=== PATIENT | male | born 1930 | race Caucasian/White ===

== ENCOUNTER 2016-12-21 23:52 | Emergency (ER) | payer MEDICARE ==
[~2016-12-21] VITALS: Ht 170.2 cm; Wt 64.1 kg
[~2016-12-21 23:52] MED LIST: ASCO500C PO; ASPI-110 PO; CITRTAB7 PO; FERR325T PO; FLUT1SPR5 EACH NARE; LISI-515 PO; MULT-6 PO; OMEG100037; TAMS5CAP PO; VITA10002 PO
[2016-12-22 00:01] VITALS: BP 190/70; PULSE 63; RESP 16; TEMP 98.3; O2SAT 98
[2016-12-22 00:29] VITALS: BP 133/92; PULSE 94; RESP 16; TEMP 98.2; O2SAT 100
[2016-12-22 00:40] VITALS: O2SAT 96
[2016-12-22] MEDS ORDERED: SODIUM CHLORIDE 0.9% FLUSH 10 ML FLUSH IVF PRN (00:45)
[2016-12-22] MEDS ORDERED: MORPHINE SULFATE 4 MG/ML INJ IV PUSH ONE ×2 (00:45→01:00)
[2016-12-22 01:07] LABS: AUTOMATED NEUTROPHIL # 2.8 TH/MM3 (1.8-7.7); BASOPHIL % 0.7 % (0.0-2.0); EOSINOPHIL # 0.2 TH/MM3 (0-0.4); EOSINOPHIL % 3.7 % (0.0-4.0); HEMO FLAGS DIFF FINAL; LYMPH % 32.2 % (9.0-44.0); LYMPHOCYTE # 1.8 TH/MM3 (1.0-4.8); MEAN CELL VOLUME 95.3 FL (80.0-100.0); MEAN CORPUSCULAR HEMOGLOBIN 32.1 PG (27.0-34.0); MEAN CORPUSCULAR HGB CONC 33.7 % (32.0-36.0); MONO % 12.7 % (0.0-8.0); NEUT % 50.7 % (16.0-70.0); PLATELET COUNT 145 TH/MM3 (150-450); RED BLOOD COUNT 3.36 MIL/MM3 (4.50-5.90); WHITE BLOOD COUNT 5.5 TH/MM3 (4.0-11.0)
[2016-12-22 01:08] VITALS: BP 186/56; PULSE 58; O2SAT 96
[2016-12-22 01:14] LABS: CHLORIDE 102 MEQ/L (98-107); POTASSIUM 4.5 MEQ/L (3.5-5.1); SODIUM (NA) 136 MEQ/L (136-145)
[2016-12-22 01:18] LABS: ANION GAP 7 MEQ/L (5-15); BICARBONATE 26.6 MEQ/L (21.0-32.0); BLOOD UREA NITROGEN 29 MG/DL (7-18)
[2016-12-22 01:20] LABS: ALT (GPT) 16 U/L (12-78); APTT (PATIENT) 26.4 SEC (24.3-30.1); PROTHROMBIN TIME - PATIENT 10.7 SEC (9.8-11.6)
[2016-12-22 01:21] LABS: AST (GOT) 15 U/L (15-37); GLOMERULAR FILTRATION RATE 44 ML/MIN (>89)
[2016-12-22 01:22] LABS: TOTAL BILIRUBIN ADULT 0.5 MG/DL (0.2-1.0)
[2016-12-22 01:23] LABS: ALKALINE PHOSPHATASE 68 U/L (45-117); CREATINE KINASE 129 U/L (39-308)
[2016-12-22 01:36] LABS: CKMB 3.1 NG/ML (0.5-3.6)
[2016-12-22] MEDS ORDERED: MORPHINE SULFATE 8 MG/ML INJ IV PUSH ONE (02:15)
[2016-12-22 02:29] VITALS: BP 197/70; PULSE 68; O2SAT 96
[2016-12-22 03:30] VITALS: BP 175/63; PULSE 56; O2SAT 96
[2016-12-22] MEDS ORDERED: IOHEXOL 350 MG/ML 10 ML VIAL (for RAD DIAG) IV ONE (03:44)
--- NOTE | 2016-12-22 04:12 | RADHPO ---
EXAM DATE/TIME: 12/22/2016 02:49 [facility] COMPARISON: No previous studies available for comparison. INDICATIONS : Left lower back pain. Evaluate for aortic dissection. IV CONTRAST: 100 cc Omnipaque 350 (iohexol) IV RADIATION DOSE: 8.80 CTDIvol (mGy) ; Combined studies MEDICAL HISTORY : Cardiovascular disease. Aneurysm, abdominal. SURGICAL HISTORY : Abdominal aortic aneurysm repair. ENCOUNTER: Initial ACUITY: 1 day PAIN SCALE: 10/10 LOCATION: Left Lower back. TECHNIQUE: Volumetric scanning was performed using a multi-row detector CT scanner. The data was post processed with a variety of visualization algorithms including full volume maximum intensity projection, multi -planar sliding thin slab reformation, curved planar reformation, and surface rendering techniques. Using automated exposure control and adjustment of the mA and/or kV according to patient size, radiat ion dose was kept as low as reasonably achievable to obtain optimal diagnostic quality images. FINDINGS: Thoracic/abdominal aorta: Diffuse calcified atherosclerotic plaque. No aneurysmal change. No dissection. The bifurcated stent g raft is seen within the infrarenal aorta. The stent graft is patent. No endoleak. 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 In flow and arch vessels are patent. Both renal arteries are stenotic at their origins. Heart and mediastinum: The heart is normal in size. No pericardial effusion. Coronary artery atherosclerotic calcifications are noted. Pulmonary arteries are normal in caliber. No mass or adenopathy. Lung parenchyma: A calcified pleural plaque is seen involving the right apex. Emphysematous changes. No infiltrate or effusion. Other structures: A small hiatal hernia. Bilateral cortical renal cysts. Scattered colonic diverticuli. CONCLUSION: 1. No acute abnormality. In particular, no dissection. 2. Bilateral renal artery stenoses. 3. Coronary artery atherosclerotic calcifications. 4. Emphysematous changes. Gualberto Rivas Jr., MD on December 22, 2016 at 4:05 Board Certified Radiologist. This report was verified electronically.
--- NOTE | 2016-12-22 04:18 | RADHPO ---
EXAM DATE/TIME: 12/22/2016 02:49 [facility] COMPARISON: No previous studies available for comparison. INDICATIONS : Left lower back pain. Evaluate for fracture. RADIATION DOSE: ; Reconstructed from previous dataset MEDICAL HISTORY : Aneurysm, abdominal. Cardiovascular disease SURGICAL HISTORY : Abdominal aortic aneurysm repair. ENCOUNTER: Initial ACUITY: 1 day PAIN SCALE: 10/10 LOCATION: Left Lower back.. TECHNIQUE: Volumetric scanning of the lumbar spine was performed. Multiplanar reconstructions in the sagittal, coronal and oblique axial planes were performed. Using automated exposure control and adjustment of the mA and/or kV according to patient size, radiation dose was kept as low as reasonably achievable t o obtain optimal diagnostic quality images. FINDINGS: VERTEBRAE: Normal vertebral body height. Diffuse osteopenia. ALIGNMENT: No evidence of subluxation. T12-L1: The thecal sac has a normal diameter. No evidence of disc bulge or protrusion. The neural foramina are patent bilaterally. L1-L2: The thecal sac has a normal diameter. No evidence of disc bulge or protrusion. The neural foramina are patent bilaterally. L2-L3: A prominent anterior osteophyte. A mild broad-based disc bulge. Mild ligamentum flavum hypertrophy of the facets. Central canal and neural foramina are patent. L3-L4: A broad-based disc bulge in combination with moderate ligamentum flavum hypertrophy and mild bony hyp ertrophy of the facets causes narrowing of the central canal and lateral recesses bilaterally. There is narrowing of the neural foramina more pronounced on the right. No overt impingement. L4-L5: There is disc space narrowing with vacuum disc phenomenon. A mild broad-based disc bulge. Prominent l igamentum flavum hypertrophy which is more abundant on the left with moderate bony hypertrophy. There is total effacement left lateral recess. Narrowing of the right lateral recess and central canal. Im pingement of the left L4 nerve root within the neural foramen. Narrowing of the right neural foramen without overt impingement. L5-S1: Disc space narrowing with vacuum disc phenomena and broad-based bulge. Narrowing of the lateral reces ses bilaterally. Narrowing of the neural foramina without overt impingement. Mild ligamentum flavum h ypertrophy and bony hypertrophy of the facets. CONCLUSION: 1. No acute abnormality. 2. Degenerative changes including central canal stenosis and neural impingement as detailed above. Gualberto Rivas Jr., MD on December 22, 2016 at 4:11 Board Certified Radiologist. This report was verified electronically.
[2016-12-22] MEDS ORDERED: CYCL1TAB29 PO (04:29)
--- NOTE | 2016-12-22 04:30 | PD ---
HPI Chief Complaint: Back/ Neck Pain or Injury Time Seen by Provider: 00:27 Travel History International Travel<30 days: No Contact w/Intl Traveler<30days: No Traveled to known affect area: No History of Present Illness HPI Patient is 86-year-old male presents emergency Department with complaints of left-sided low back pain for the past day. Patient states that yesterday he did exert himself more than normal and was doing some yard work outside. He describes the pain is throbbing. In triage the patient was also noted to have an irregular pulse and EKG was performed. He states the pain is fairly severe in his low back but did not endorse a sudden onset. Patient has not followed with a associate material handler is never had a heart attack or stroke before. He was told he had a history of an irregular heartbeat. He cannot clarify further. No fevers dysuria.Patient has no complaints of shortness of breath chest pain saddle anesthesia difficulty urinating or difficulty ambulating.Patient denies any dysuria denies any abdominal pain nausea or vomiting. PFSH Past Medical History Cancer: No Cardiovascular Problems: Yes High Cholesterol: No Coronary Artery Disease: Yes Endocrine: No Genitourinary: Yes (BPH) Hypertension: Yes Immune Disorder: No Implanted Vascular Access Dvce: Yes Musculoskeletal: No Neurologic: No Psychiatric: No Reproductive: No Respiratory: No Past Surgical History Abdominal Aneurysm Repair: Yes ( 12/2004) Abdominal Surgery: Yes (2004 ENDOVASCULAR AAA) Body Medical Devices: AORTIC STENT Cardiac Surgery: Yes (ANGIOPLASTY 1988) Other Surgery: Yes Social History Alcohol Use: No Tobacco Use: Yes (1 p per week) Substance Use: No Allergies-Medications (Allergen,Severity, Reaction): Coded Allergies: No Known Allergies (Verified , 12/22/16) Reported Meds & Prescriptions Reported Meds & Active Scripts Active Flexeril (Cyclobenzaprine HCl) 10 Mg Tab 10 Mg PO TID Reported Vitamin B-12 (Cyanocobalamin) 1,000 Mcg Tab 1,000 Mcg PO DAILY Vitamin C (Ascorbic Acid) 500 Mg Cap 500 Mg PO DAILY Flomax (Tamsulosin HCl) 0.4 Mg Cap 0.4 Mg PO HS Fish Oil 1000 mg ([place]-3 Fatty Acids) 1 Cap Cap BID Centrum (Multiple Vitamins W/ Minerals) 1 Tab 1 Tab PO DAILY Aspirin 81 (Aspirin) 81 Mg Tabdr 81 Mg PO DAILY Citracal + D3 Maximum (Calcium Citrate-Vitamin D) 315-250 Mg-Unit Tab 1 Tab PO BID Lisinopril 20 Mg Tab 20 Mg PO DAILY Review of Systems Except as stated in HPI: all other systems reviewed are Neg Physical Exam Narrative GENERAL: Well-developed well-nourished, appears generally than stated age, minimally uncomfortable. SKIN: Focused skin assessment warm/dry. HEAD: Atraumatic. Normocephalic. EYES: Pupils equal and round. No scleral icterus. No injection or drainage. ENT: No nasal bleeding or discharge. Mucous membranes pink and moist. NECK: Trachea midline. No JVD. CARDIOVASCULAR: Irregularly irregular. 2+ bilateral equal pulses in all 4 extremities. No murmur appreciated. RESPIRATORY: No accessory muscle use. Clear to auscultation. Breath sounds equal bilaterally. GASTROINTESTINAL: Abdomen soft, non-tender, nondistended. Hepatic and splenic margins not palpable. MUSCULOSKELETAL: No obvious deformities. No clubbing. No cyanosis. No edema. Patient isolates the pain to the low back at approximately the L2-L3 area states it wraps around the left side ending in the midaxillary line. There is some pain on the right as well but states more intense on the left. There is no tenderness to light palpation. No rash. No reproducible midline tenderness no reproducible bony tenderness. NEUROLOGICAL: Awake and alert. No obvious cranial nerve deficits. Motor grossly within normal limits. Normal speech. PSYCHIATRIC: Appropriate mood and affect; insight and judgment normal. Data Data Last Documented VS Vital Signs Date Time Temp Pulse Resp B/P Pulse Ox O2 Delivery O2 Flow Rate FiO2 12/22/16 03:30 56 175/63 96 Room Air 12/22/16 00:01 98.3 16 Orders Electrocardiogram (12/22/16 00:43) Ckmb (Isoenzyme) Profile (12/22/16 00:43) Complete Blood Count With Diff (12/22/16 00:43) Comprehensive Metabolic Panel (12/22/16 00:43) Magnesium (Mg) (12/22/16 00:43) Prothrombin Time / Inr (Pt) (12/22/16 00:43) Act Partial Throm Time (Ptt) (12/22/16 00:43) Troponin I (12/22/16 00:43) Ecg Monitoring (12/22/16 00:43) Bilateral Bp Monitoring (12/22/16 00:43) Iv Access Insert/Monitor (12/22/16 00:43) Oximetry (12/22/16 00:43) Oxygen Administration (12/22/16 00:43) Sodium Chloride 0.9% Flush (Ns Flush) (12/22/16 00:45) Morphine Inj (Morphine Inj) (12/22/16 00:45) Morphine Inj (Morphine Inj) (12/22/16 01:00) CKMB (12/22/16 00:55) CKMB% (12/22/16 00:55) Cta Thor Abd Aorta W Iv C W3d (12/22/16 ) Ct Lumb Spine W/O Contrast (12/22/16 ) Morphine Inj (Morphine Inj) (12/22/16 02:15) Iohexol 350 Inj (Omnipaque 350 Inj) (12/22/16 03:44) Labs Laboratory Tests Test 12/22/16 00:55 White Blood Count 5.5 TH/MM3 Red Blood Count 3.36 MIL/MM3 Hemoglobin 10.8 GM/DL Hematocrit 32.0 % Mean Corpuscular Volume 95.3 FL Mean Corpuscular Hemoglobin 32.1 PG Mean Corpuscular Hemoglobin 33.7 % Concent Red Cell Distribution Width 13.0 % Platelet Count 145 TH/MM3 Mean Platelet Volume 8.6 FL Neutrophils (%) (Auto) 50.7 % Lymphocytes (%) (Auto) 32.2 % Monocytes (%) (Auto) 12.7 % Eosinophils (%) (Auto) 3.7 % Basophils (%) (Auto) 0.7 % Neutrophils # (Auto) 2.8 TH/MM3 Lymphocytes # (Auto) 1.8 TH/MM3 Monocytes # (Auto) 0.7 TH/MM3 Eosinophils # (Auto) 0.2 TH/MM3 Basophils # (Auto) 0.0 TH/MM3 CBC Comment DIFF FINAL Differential Comment Prothrombin Time 10.7 SEC Prothromb Time International 1.0 RATIO Ratio Activated Partial 26.4 SEC Thromboplast Time Sodium Level 136 MEQ/L Potassium Level 4.5 MEQ/L Chloride Level 102 MEQ/L Carbon Dioxide Level 26.6 MEQ/L Anion Gap 7 MEQ/L Blood Urea Nitrogen 29 MG/DL Creatinine 1.50 MG/DL Estimat Glomerular Filtration 44 ML/MIN Rate Random Glucose 101 MG/DL Calcium Level 8.5 MG/DL Magnesium Level 2.0 MG/DL Total Bilirubin 0.5 MG/DL Aspartate Amino Transf 15 U/L (AST/SGOT) Alanine Aminotransferase 16 U/L (ALT/SGPT) Alkaline Phosphatase 68 U/L Total Creatine Kinase 129 U/L Creatine Kinase MB 3.1 NG/ML Troponin I 0.03 NG/ML Total Protein 6.8 GM/DL Albumin 3.6 GM/DL MDM Medical Decision Making Medical Screen Exam Complete: Yes Emergency Medical Condition: Yes Interpretation(s) EKG shows second degree heart block with PVCs appears to be almost a bigeminal pattern ([id number] etc.), VT interval is 214 when there is couple between P and QRS. Intervals are otherwise within normal limits. No concerning ST T changes. This certainly is an abnormal rhythm EKG. Comparison to 04/03/2015. A bigeminal type pattern is still present however the dropped QRS complexes after P waves consistent with secondary heart block is new. No EKG can be found in the patient's record indicative of previous secondary heart block. Differential Diagnosis Second degree heart block, aortic dissection, acute abdominal pain, pathologic fracture, muscle strain, muscle sprain. Narrative Course Patient was roomed in the emergency department, given his age and his low weight his pain was initially treated with 2 mg of morphine which did not cause significant relief. He was given an additional 5 mg of IV morphine which completely relieved his pain and he stated he felt much better. Given that his pain was not reproducible and his age as well as abnormal EKG a think a CT aorta is indicated to rule out significant pathology. Last [address] Imp[address] 12/22/16 Signed Impressions: Service Date/Time: Thursday, December 22, 2016 02:49 - CONCLUSION: 1. No acute abnormality. 2. Degenerative changes including central canal stenosis and neural impingement as detailed above. Gualberto Rivas Jr., MD Aorta CTA 12/22/16 Signed Impressions: Service Date/Time: Thursday, December 22, 2016 02:49 - CONCLUSION: 1. No acute abnormality. In particular, no dissection. 2. Bilateral renal artery stenoses. 3. Coronary artery atherosclerotic calcifications. 4. Emphysematous changes. Gualberto Rivas Jr., MD Initial laboratory workup including CBC CMP troponin all within normal limits. The patient has been monitored on cardiac telemetry who continues to have this second-degree heart block which is not further classified type I or type II is appears to be a dropped beat every other P wave. I discussed all the results with the patient and my chief impression the patient is that he has strained a muscle in his left lower back secondary to overuse yesterday. This was his presenting complaint. We are also faced with explaining his abnormal EKG which does appear to be second-degree heart block with frequent PVCs. Concerns would be for deterioration and third-degree heart block ACS or AMI. All of my concerns were conveyed to the patient. Discussed with him and his that if this rhythm goes unchecked the patient is at risk for sudden cardiac collapse and permanent disability. He verbalized understanding to this risk. After discussion the patient has not had any history of shortness of breath or chest pain or any complaints from umbilicus superiorly. He states he would like to go home at this juncture. I discussed with him that if he goes home there is certain wrist that is arrhythmia will further decompensate and he is at risk of and disability. He verbalized understanding acceptance this risk and still like to go home. He will be prescribed Flexeril for pain control and discussed need for short order follow-up with his primary care physician he is also been given a referral to cardiology and recommended he call first thing in the morning to make an appointment. He verbalized understanding and will follow-up. He did sign a formal AMA form. He was encouraged to return to the emergency department should he change his mind about inpatient cardiology consult. Discussed signs symptoms that should prompt him to call 911. Diagnosis Primary Impression: Second degree heart block Additional Impression: Low back pain Referrals: Estrada Elliott MD Additional Instructions: Recommend following with her primary care physician as soon as possible and a associate material handler as soon as possible. If you change your mind for admission to the hospital and cardiology consultation your welcome to return at any time. Med/Other Pt SpecificInfo: Prescription(s) given Scripts Cyclobenzaprine (Flexeril)10 Mg Tab10 Mg PO TID #15 TAB Ref 0 Prov:Saulo Dawson MD 12/22/16 Disposition: 07 AGAINST MEDICAL ADVICE Condition: Stable Saulo Dawson MD Dec 22, 2016 04:30
--- NOTE | 2016-12-22 09:12 | EKG ---
Date Performed: 12/22/2016 Time Performed: 00:18:52 PTAGE: 86 years EKG: Sinus bradycardia with multifocal interpolated PVCs with borderline 1st degree A-V block. S econd degree AV block 2:1 ST junctional depression is nonspecific Abnormal ECG PREVIOUS TRACING : 06/21/2011 11.27 DOCTOR: Glenn Veras Interpretating Date/Time 12/22/2016 09:11:21
[2017-01-18] MEDS ORDERED: LISI-515 PO (15:06)
[2017-03-08] MEDS ORDERED: FURO20TA PO (14:50)
== END 2016-12-22 04:47 | disposition left against medical advice (07) ==
LOC: PHED 23:52
DX: I44.1 Atrioventricular block, second degree (principal); M48.06 Spinal stenosis, lumbar region; M54.5 Low back pain; I49.3 Ventricular premature depolarization; I10 Essential (primary) hypertension; I25.10 Atherosclerotic heart disease of native coronary artery without angina pectoris; K44.9 Diaphragmatic hernia without obstruction or gangrene; N28.1 Cyst of kidney, acquired; Z53.21 Procedure and treatment not carried out due to patient leaving prior to being seen by health care provider
CPT/HCPCS: 71275; 72131; 74174; 80053; 82550; 82552; 83735; 84484; 85025; 85610; 85730; 93005; 96374; 96376; 99284; J2270; Q9967

== ENCOUNTER 2017-02-28 11:42 | Inpatient (IN) | payer MEDICARE ==
[~2017-02-28] VITALS: Ht 170.2 cm; Wt 70.5 kg
[2017-02-28] VITALS (11 sets, daily range): BP systolic 145–219; BP diastolic 57–88; PULSE 32–39; RESP 16–18; TEMP 97.5–97.8; O2SAT 95–100
[~2017-02-28 11:42] MED LIST changes: -FERR325T PO; -FLUT1SPR5 EACH NARE
--- NOTE | 2017-02-28 12:14 | PD ---
HPI Chief Complaint: Cardiac Complaint Time Seen by Provider: 12:08 Travel History International Travel<30 days: No Contact w/Intl Traveler<30days: No Traveled to known affect area: No History of Present Illness HPI 86-year-old male with a history of hypertension and BPH is brought to the emergency department by EMS from his PCPs office for evaluation of low heart rate. The patient was seen by his PCP Dr. Ballard for a regularly scheduled follow-up appointment today and was noted to have a very low heart rate while his vitals were checked. They did an EKG which shows he has a second-degree type II heart block and he was then brought to the emergency department. The patient denies any complaints. He denies any chest pain, shortness of breath, lightheadedness, dizziness, nausea, vomiting, syncope. States that he occasionally has some mild swelling around his ankles that alleviated with elevating his legs. Denies any history of CAD or stroke. No other complaints. PFSH Past Medical History Cancer: No Cardiovascular Problems: Yes High Cholesterol: No Coronary Artery Disease: Yes Endocrine: No Genitourinary: Yes (BPH) Hypertension: Yes Immune Disorder: No Implanted Vascular Access Dvce: Yes Musculoskeletal: No Neurologic: No Psychiatric: No Reproductive: No Respiratory: No Past Surgical History Abdominal Aneurysm Repair: Yes ( 12/2004) Abdominal Surgery: Yes (2004 ENDOVASCULAR AAA) Body Medical Devices: AORTIC STENT Cardiac Surgery: Yes (ANGIOPLASTY 1988) Other Surgery: Yes Social History Alcohol Use: No Tobacco Use: Yes (1 p per week) Substance Use: No Allergies-Medications (Allergen,Severity, Reaction): Coded Allergies: No Known Allergies (Verified , 02/28/17) Reported Meds & Prescriptions Reported Meds & Active Scripts Active Lisinopril 20 Mg Tab 20 Mg PO DAILY Reported Vitamin B-12 (Cyanocobalamin) 1,000 Mcg Tab 1,000 Mcg PO DAILY Flomax (Tamsulosin HCl) 0.4 Mg Cap 0.4 Mg PO HS Aspirin 81 (Aspirin) 81 Mg Tabdr 81 Mg PO DAILY Citracal + D3 Maximum (Calcium Citrate-Vitamin D) 315-250 Mg-Unit Tab 1 Tab PO BID Review of Systems Except as stated in HPI: all other systems reviewed are Neg Physical Exam Narrative GENERAL: Well-nourished and well-developed pleasant patient in no acute distress who is nontoxic appearing. SKIN: Warm and dry. HEAD: Normocephalic and atraumatic. EYES: No injection, drainage, or hyphema noted. PERRLA. EOMI. ENT: No nasal drainage noted. Oropharynx is clear. NECK: Supple and the trachea is midline. CARDIOVASCULAR: Regular rate and rhythm. RESPIRATORY: Breath sounds are equal bilaterally with no accessory muscle use, wheezing, rhonchi, or crackles. GASTROINTESTINAL: Abdomen is soft, non-tender, and nondistended. MUSCULOSKELETAL: No obvious deformities, swelling, cyanosis, or ecchymosis is present throughout the upper and lower extremities. Patient has full range of motion without any signs of neurovascular compromise. NEUROLOGICAL: Awake, alert, and oriented. Normal speech and gait. Cranial nerves are grossly intact. Data Data Last Documented VS Vital Signs Date Time Temp Pulse Resp B/P Pulse Ox O2 Delivery O2 Flow Rate FiO2 02/28/17 13:42 36 16 162/70 99 Room Air 02/28/17 11:53 97.8 Orders Electrocardiogram (02/28/17 11:54) Complete Blood Count With Diff (02/28/17 12:04) Comprehensive Metabolic Panel (02/28/17 12:04) Magnesium (Mg) (02/28/17 12:04) Prothrombin Time / Inr (Pt) (02/28/17 12:04) Act Partial Throm Time (Ptt) (02/28/17 12:04) Chest, Single Ap (02/28/17 12:04) Ecg Monitoring (02/28/17 12:04) Bilateral Bp Monitoring (02/28/17 12:04) Iv Access Insert/Monitor (02/28/17 12:04) Oximetry (02/28/17 12:04) Oxygen Administration (02/28/17 12:04) Sodium Chloride 0.9% Flush (Ns Flush) (02/28/17 12:15) Hydralazine Inj (Apresoline Inj) (02/28/17 12:15) NPO (02/28/17 12:39) Admit Order (Ed Use Only) (02/28/17 13:40) Consult Cardiology (02/28/17 ) Labs Laboratory Tests Test 02/28/17 12:20 White Blood Count 4.7 TH/MM3 Red Blood Count 3.30 MIL/MM3 Hemoglobin 10.3 GM/DL Hematocrit 31.6 % Mean Corpuscular Volume 95.8 FL Mean Corpuscular Hemoglobin 31.2 PG Mean Corpuscular Hemoglobin 32.6 % Concent Red Cell Distribution Width 14.5 % Platelet Count 143 TH/MM3 Mean Platelet Volume 9.9 FL Neutrophils (%) (Auto) 42.0 % Lymphocytes (%) (Auto) 38.3 % Monocytes (%) (Auto) 16.6 % Eosinophils (%) (Auto) 2.3 % Basophils (%) (Auto) 0.8 % Neutrophils # (Auto) 2.0 TH/MM3 Lymphocytes # (Auto) 1.8 TH/MM3 Monocytes # (Auto) 0.8 TH/MM3 Eosinophils # (Auto) 0.1 TH/MM3 Basophils # (Auto) 0.0 TH/MM3 CBC Comment DIFF FINAL Differential Comment Prothrombin Time 10.7 SEC Prothromb Time International 1.0 RATIO Ratio Activated Partial 24.5 SEC Thromboplast Time Sodium Level 134 MEQ/L Potassium Level 5.0 MEQ/L Chloride Level 103 MEQ/L Carbon Dioxide Level 24.8 MEQ/L Anion Gap 6 MEQ/L Blood Urea Nitrogen 31 MG/DL Creatinine 1.69 MG/DL Estimat Glomerular Filtration 39 ML/MIN Rate Random Glucose 93 MG/DL Calcium Level 8.5 MG/DL Magnesium Level 2.2 MG/DL Total Bilirubin 0.4 MG/DL Aspartate Amino Transf 32 U/L (AST/SGOT) Alanine Aminotransferase 31 U/L (ALT/SGPT) Alkaline Phosphatase 74 U/L Total Protein 6.7 GM/DL Albumin 3.3 GM/DL MDM Medical Decision Making Medical Screen Exam Complete: Yes Emergency Medical Condition: Yes Differential Diagnosis Second-degree heart block versus complete heart block versus electrolyte abnormality Narrative Course 86-year-old male is brought to the emergency department for evaluation of low heart rate. Patient is afebrile. His pulse is noted to be 39 bpm. He is hypertensive with a blood pressure of 219/88. Otherwise vital signs within normal limits. The patient is currently asymptomatic. EKG initially done at PCP office shows a second-degree heart block type II. EKG done in our emergency department shows ventricular rate of 35 bpm and AV dissociation. May have a sick sinus syndrome. I reviewed the EMR which shows that the patient had a similar EKG 2 months ago when he came in for evaluation of back pain. At the time this was an incidental finding and it was recommended that he stay for admission for pacemaker however the patient left AGAINST MEDICAL ADVICE. The patient agrees to stay for treatment today. IV access is obtained, labs have been drawn and sent. Patient is placed on cardiac telemetry and pulse oximetry monitoring. He is administered hydralazine 10 mg IV for blood pressure. Patient will be admitted to medicine service with cardiology consultation. Chest x-ray is unremarkable. CBC shows mild anemia with hemoglobin of 10.3, hematocrit 31.6. Coags are unremarkable. CMP shows renal insufficiency with a creatinine 1.69, BUN 31, GFR 39. This is similar to labs performed a few months ago. Patient has remained stable and without complaint while here in the emergency department. He'll be admitted to the family medicine service with a cardiology consultation. I discussed the case with my attending physician Dr. Alvarado who is aware of the patients history, physical examination findings, and treatment plan. Physician Communication Physician Communication My attending physicians Dr. Alvarado spoke with Dr. Santos recreational sports director who reviewed the EKGs and states that the patient has a third-degree heart block and will need a pacemaker. Dr. Renee spoke with Dr. Clay fishing floats assembler who requested the patient be kept nothing by mouth and he will see the patient while in the hospital for consultation. I spoke with Dr. Kee who agrees to admit the patient to the resident's service. Diagnosis Primary Impression: Third degree heart block Admitting Information Admitting Physician Requests: Observation Maira Montanez Feb 28, 2017 12:14
[2017-02-28] MEDS ORDERED: SODIUM CHLORIDE 0.9% FLUSH 10 ML FLUSH IVF PRN (12:15)
[2017-02-28] MEDS ORDERED: hydrALAZINE HCL 20 MG/ML VIAL IV PUSH ONE (12:15)
--- NOTE | 2017-02-28 12:31 | RADRPT ---
EXAM DATE/TIME: 02/28/2017 12:07 [facility] COMPARISON: CHEST SINGLE AP, March 28, 2015, 18:27. INDICATIONS : Chest discomfort, bradycardic today at doctors office MEDICAL HISTORY : Aneurysm, abdominal. Cardiovascular disease. SURGICAL HISTORY : AAA repair ENCOUNTER: Initial ACUITY: 1 day PAIN SCORE: 10 LOCATION: Bilateral chest FINDINGS: A single view of the chest demonstrates the lungs to be symmetrically aerated without evidence of mas s, infiltrate or effusion. The cardiomediastinal contours are unremarkable. Osseous structures are intact. CONCLUSION: No acute disease. Donn Alejandre MD FACR on February 28, 2017 at 12:28 Board Certified Radiologist. This report was verified electronically.
--- NOTE | 2017-02-28 12:34 | PD ---
Physical Exam Date Seen by Provider: Feb 28, 2017 Time Seen by Provider: 12:15 Narrative I am seeing this patient with Yelitza Montanez PA-C. This is a 86 year-old gentleman who was sent from his primary care office for evaluation and admission for bradycardia. The patient apparently has had this for some time. There is no reported syncopal episodes or dizziness. The patient was noted to have a heart rate in the 30s. Data Data Last Documented VS Vital Signs Date Time Temp Pulse Resp B/P Pulse Ox O2 Delivery O2 Flow Rate FiO2 02/28/17 13:42 36 16 162/70 99 Room Air 02/28/17 11:53 97.8 Orders Electrocardiogram (02/28/17 11:54) Complete Blood Count With Diff (02/28/17 12:04) Comprehensive Metabolic Panel (02/28/17 12:04) Magnesium (Mg) (02/28/17 12:04) Prothrombin Time / Inr (Pt) (02/28/17 12:04) Act Partial Throm Time (Ptt) (02/28/17 12:04) Chest, Single Ap (02/28/17 12:04) Ecg Monitoring (02/28/17 12:04) Bilateral Bp Monitoring (02/28/17 12:04) Iv Access Insert/Monitor (02/28/17 12:04) Oximetry (02/28/17 12:04) Oxygen Administration (02/28/17 12:04) Sodium Chloride 0.9% Flush (Ns Flush) (02/28/17 12:15) Hydralazine Inj (Apresoline Inj) (02/28/17 12:15) NPO (02/28/17 12:39) Admit Order (Ed Use Only) (02/28/17 13:40) Consult Cardiology (02/28/17 ) Labs Laboratory Tests Test 02/28/17 12:20 White Blood Count 4.7 TH/MM3 Red Blood Count 3.30 MIL/MM3 Hemoglobin 10.3 GM/DL Hematocrit 31.6 % Mean Corpuscular Volume 95.8 FL Mean Corpuscular Hemoglobin 31.2 PG Mean Corpuscular Hemoglobin 32.6 % Concent Red Cell Distribution Width 14.5 % Platelet Count 143 TH/MM3 Mean Platelet Volume 9.9 FL Neutrophils (%) (Auto) 42.0 % Lymphocytes (%) (Auto) 38.3 % Monocytes (%) (Auto) 16.6 % Eosinophils (%) (Auto) 2.3 % Basophils (%) (Auto) 0.8 % Neutrophils # (Auto) 2.0 TH/MM3 Lymphocytes # (Auto) 1.8 TH/MM3 Monocytes # (Auto) 0.8 TH/MM3 Eosinophils # (Auto) 0.1 TH/MM3 Basophils # (Auto) 0.0 TH/MM3 CBC Comment DIFF FINAL Differential Comment Prothrombin Time 10.7 SEC Prothromb Time International 1.0 RATIO Ratio Activated Partial 24.5 SEC Thromboplast Time Sodium Level 134 MEQ/L Potassium Level 5.0 MEQ/L Chloride Level 103 MEQ/L Carbon Dioxide Level 24.8 MEQ/L Anion Gap 6 MEQ/L Blood Urea Nitrogen 31 MG/DL Creatinine 1.69 MG/DL Estimat Glomerular Filtration 39 ML/MIN Rate Random Glucose 93 MG/DL Calcium Level 8.5 MG/DL Magnesium Level 2.2 MG/DL Total Bilirubin 0.4 MG/DL Aspartate Amino Transf 32 U/L (AST/SGOT) Alanine Aminotransferase 31 U/L (ALT/SGPT) Alkaline Phosphatase 74 U/L Total Protein 6.7 GM/DL Albumin 3.3 GM/DL [facility] Medical Record Reviewed: Yes Supervised Visit with ALICE: Yes Differential Diagnosis Mobitz type II versus complete heart block versus sick sinus syndrome Narrative Course 86-year-old male who presents with a heart rate of 35. He was seen at his primary care office and sent here for admission and evaluation. The patient has a third-degree heart block. Case was discussed with Dr. Clay, who will likely place a pacemaker. Patient was admitted to the [facility] emergency service. Diagnosis Primary Impression: Third degree heart block Randolph Alvarado MD Feb 28, 2017 12:34
[2017-02-28 12:35] LABS: BASOPHIL % 0.8 % (0.0-2.0); EOSINOPHIL # 0.1 TH/MM3 (0-0.4); EOSINOPHIL % 2.3 % (0.0-4.0); HEMATOCRIT 31.6 % (39.0-51.0); HEMO FLAGS DIFF FINAL; LYMPH % 38.3 % (9.0-44.0); LYMPHOCYTE # 1.8 TH/MM3 (1.0-4.8); MEAN CELL VOLUME 95.8 FL (80.0-100.0); MEAN CORPUSCULAR HEMOGLOBIN 31.2 PG (27.0-34.0); MEAN CORPUSCULAR HGB CONC 32.6 % (32.0-36.0); MONO % 16.6 % (0.0-8.0); PLATELET COUNT 143 TH/MM3 (150-450); RED CELL DISTRIBUTION WIDTH 14.5 % (11.6-17.2); WHITE BLOOD COUNT 4.7 TH/MM3 (4.0-11.0)
[2017-02-28 12:44] LABS: APTT (PATIENT) 24.5 SEC (24.3-30.1); PROTHROMBIN TIME - PATIENT 10.7 SEC (9.8-11.6)
[2017-02-28 12:54] LABS: ALT (GPT) 31 U/L (12-78); ANION GAP 6 MEQ/L (5-15); AST (GOT) 32 U/L (15-37); BICARBONATE 24.8 MEQ/L (21.0-32.0); BLOOD UREA NITROGEN 31 MG/DL (7-18); CHLORIDE 103 MEQ/L (98-107); GLOMERULAR FILTRATION RATE 39 ML/MIN (>89); MAGNESIUM 2.2 MG/DL (1.5-2.5); SODIUM (NA) 134 MEQ/L (136-145)
[2017-02-28 12:56] LABS: ALKALINE PHOSPHATASE 74 U/L (45-117); TOTAL BILIRUBIN ADULT 0.4 MG/DL (0.2-1.0)
[2017-02-28] MEDS ORDERED: SENNOSIDES 8.6 MG TAB PO PRN (14:30)
[2017-02-28] MEDS ORDERED: MAGNESIUM HYDROXIDE SUSP 30 ML CUP PO PRN (14:30)
[2017-02-28] MEDS ORDERED: LACTULOSE SYRUP 20 GM/30 ML CUP PO PRN (14:30)
[2017-02-28] MEDS ORDERED: ONDANSETRON HCL 4 MG/2 ML VIAL IVP PRN (14:30)
[2017-02-28] MEDS ORDERED: SODIUM CHLORIDE 0.9% FLUSH 10 ML FLUSH IV FLUSH PRN (14:30)
[2017-02-28] MEDS ORDERED: ACETAMINOPHEN 325 MG TAB PO PRN (14:30)
[2017-02-28] MEDS ORDERED: NALOXONE HCL 0.4 MG/ML AMP IV PRN (14:30)
[2017-02-28] MEDS ORDERED: BISACODYL 10 MG SUPP RECTAL PRN (14:30)
--- NOTE | 2017-02-28 14:42 | HHI.HP ---
[facility] Service Family Medicine Primary Care Physician Francis Ballard MD Admission Diagnosis Third Degree Heart Block Diagnoses: International Travel<30 Days: No Contact w/Intl Traveler<30days: No Known Affected Area: No History of Present Illness 86-year-old male with a past medical history significant for hypertension, chronic kidney disease and urinary retention presents to the emergency department after being sent over from clinic. The patient is a patient of Dr. Ballard, who he was seeing this morning for his routine checkup when he was found to have a heart rate in the 30s. The patient denies any symptoms of bradycardia including dizziness, lightheadedness or syncope. He denies any irregular rhythms or palpitations. He states that he does become fatigued easily especially when walking and that his legs will become tired very quickly. The patient was bradycardic in the emergency department with a heart rate consistently in the 30s. He was found to have third-degree heart block on EKG. He remains asymptomatic. He was hypertensive to 219/88 emergency department. He was given hydralazine with good response. Patient states he did take his lisinopril this morning. Denies headache. No lateralizing signs/symptoms. ( Camila Kee MD R3) Review of Systems Other Denies fever or chills Denies blurry vision, otorrhea, rhinorrhea Denies sore throat and cough No chest pain, palpitations, shortness of breath No abdominal pain Denies constipation/diarrhea/nausea/vomiting Denies muscle pain/weakness No rashes (Camila Kee MD R3) Past Family Social History Past Medical History Hypertension BPH CAD status post RI in 1988 Past Surgical History Angioplasty AAA repair Reported Medications Reported Meds & Active Scripts Active Lisinopril 20 Mg Tab 20 Mg PO DAILY Reported Vitamin B-12 (Cyanocobalamin) 1,000 Mcg Tab 1,000 Mcg PO DAILY Flomax (Tamsulosin HCl) 0.4 Mg Cap 0.4 Mg PO HS Aspirin 81 (Aspirin) 81 Mg Tabdr 81 Mg PO DAILY Citracal + D3 Maximum (Calcium Citrate-Vitamin D) 315-250 Mg-Unit Tab 1 Tab PO BID (Camila Kee MD R3) Allergies: Coded Allergies: No Known Allergies (Verified , 02/28/17) Family History Noncontributory Social History Denies alcohol or tobacco. (Camila Kee MD R3) Physical Exam Vital Signs Vital Signs Date Time Temp Pulse Resp B/P Pulse Ox O2 Delivery O2 Flow Rate FiO2 02/28/17 13:42 36 16 162/70 99 Room Air 02/28/17 12:54 36 16 171/74 100 Room Air 02/28/17 12:30 37 16 189/78 02/28/17 12:13 100 02/28/17 12:13 100 Room Air 02/28/17 12:13 37 16 100 Room Air 02/28/17 11:53 97.8 39 16 219/88 100 Physical Exam Gen.: No acute distress Head: Normocephalic. Atraumatic. EENT: Pupils equal round and reactive to light. Nose without drainage. Airway intact. Throat without injection. Cardiovascular: Bradycardic. No murmurs, rubs or gallops. Respiratory: Lungs clear to auscultation bilaterally. No wheezes or rhonchi. Abdomen: Soft, nontender, nondistended. No peritoneal signs. Musculoskeletal: No gross deformities. No edema. Skin: No obvious rashes or erythema. Neuro: Sensory and motor grossly intact. Cranial nerves II through XII grossly intact. Psych: Appropriate mood and affect Laboratory Laboratory Tests Test 02/28/17 12:20 White Blood Count 4.7 Red Blood Count 3.30 Hemoglobin 10.3 Hematocrit 31.6 Mean Corpuscular Volume 95.8 Mean Corpuscular Hemoglobin 31.2 Mean Corpuscular Hemoglobin 32.6 Concent Red Cell Distribution Width 14.5 Platelet Count 143 Mean Platelet Volume 9.9 Neutrophils (%) (Auto) 42.0 Lymphocytes (%) (Auto) 38.3 Monocytes (%) (Auto) 16.6 Eosinophils (%) (Auto) 2.3 Basophils (%) (Auto) 0.8 Neutrophils # (Auto) 2.0 Lymphocytes # (Auto) 1.8 Monocytes # (Auto) 0.8 Eosinophils # (Auto) 0.1 Basophils # (Auto) 0.0 CBC Comment DIFF FINAL Differential Comment Prothrombin Time 10.7 Prothromb Time International 1.0 Ratio Activated Partial 24.5 Thromboplast Time Sodium Level 134 Potassium Level 5.0 Chloride Level 103 Carbon Dioxide Level 24.8 Anion Gap 6 Blood Urea Nitrogen 31 Creatinine 1.69 Estimat Glomerular Filtration 39 Rate Random Glucose 93 Calcium Level 8.5 Magnesium Level 2.2 Total Bilirubin 0.4 Aspartate Amino Transf 32 (AST/SGOT) Alanine Aminotransferase 31 (ALT/SGPT) Alkaline Phosphatase 74 Total Protein 6.7 Albumin 3.3 (Camila Kee MD R3) Result Diagram: 02/28/17 1220 02/28/17 1220 Assessment and Plan Assessment and Plan 86-year-old male with a past medical history significant for coronary artery disease, hypertension, chronic renal insufficiency presents to the emergency department in third-degree heart block and bradycardic to the 30s. 1. Third-degree heart block EKG significant for third-degree heart block, Dr. Santos reviewed the EKG and recommended pacemaker implantation. Dr. Clay, consulted for pacemaker placement. Nothing by mouth in anticipation of procedure. 2. Hypertension Patient on lisinopril at home, continue. Hypertensive in the emergency department to 219/88. Hydralazine when necessary for SBP greater than 180, DBP greater than 100. 5. CAD Continue aspirin 4. BPH Continue home Flomax 5. FEN Normal saline at 100 cc/hour as patient is nothing by mouth and creatinine mildly elevated from baseline Electrolytes: Replete when necessary Nothing by mouth for procedure Holding pharmacologic anticoagulation in anticipation of procedure, SCDs Code Status Full code Discussed Condition With Dr. Ballard (Camila Kee MD R3) Attending Attestation Patient seen and examined. Discussed with Dr. Kee. Agree with physical findings, assessment and plan as documented. (Francis Ballard Jr., MD) Problem List: (1) Third degree heart block Status: Acute (2) Hypertension Status: Chronic (3) Coronary arteriosclerosis Status: Chronic (4) Benign prostatic hypertroph without outflow obstruction Status: Chronic (5) Chronic kidney disease Status: Chronic (Camila Kee MD R3) Physician Certification 2 Midnight Certification Type: Admission for Inpatient Services Order for Inpatient Services The services are ordered in accordance with Medicare regulations or non- Medicare payer requirements, as applicable. In the case of services not specified as inpatient-only, they are appropriately provided as inpatient services in accordance with the 2-midnight benchmark. Estimated LOS (days): 2 2 days is the estimated time the patient will need to remain in the hospital, assuming treatment plan goals are met and no additional complications. Post-Hospital Plan: Home (Camila Kee MD R3) Camila Kee MD R3 Feb 28, 2017 14:42 Francis Ballard Jr., MD Feb 28, 2017 17:23
[2017-02-28] MEDS: SODIUM CHLOR 0.9% 1000 ML INJ 1,000 ML IV SCH (15:00)
--- NOTE | 2017-02-28 15:16 | EKG ---
Date Performed: 02/28/2017 Time Performed: 12:01:59 PTAGE: 86 years EKG: Sinus rhythm with high degree, almost complete heart block. Mild nonspecific ST segment depressions. NO PREVIOUS TRACING DOCTOR: Uriel Saavedra Interpretating Date/Time 02/28/2017 15:14:30
[2017-02-28] MEDS: SODIUM CHLORIDE 0.9% FLUSH 10 ML FLUSH IV FLUSH SCH (21:54)
[2017-02-28] MEDS: DOCUSATE SODIUM 50 MG/SENNA 8.6 MG TAB PO SCH (21:54)
[2017-02-28] MEDS: TAMSULOSIN HCL 0.4 MG CAP PO SCH (21:54)
[2017-03-01] VITALS (29 sets, daily range): BP systolic 141–194; BP diastolic 57–92; PULSE 32–90; RESP 16–19; TEMP 97.5–98.6; O2SAT 93–100
[2017-03-01] MEDS: SODIUM CHLOR 0.9% 1000 ML INJ 1,000 ML IV SCH ×3 (01:00→22:15)
[2017-03-01 05:10] LABS: BACTERIA, URINE MOD /hpf; BLOOD, URINE TRACE (NEG); COMMENT (UR) CULTURE INDICATED; CULTURE IF INDICATED CULTURE INDICATED; GLUCOSE,URINE NEG (NEG); HYALINE CAST, URINE 3 /lpf (RARE); KETONE, URINE NEG (NEG); NITRITE,URINE POS (NEG); URINE COLOR LIGHT-YELLOW (YELLW/STRAW)
[2017-03-01 06:09] LABS: AUTOMATED NEUTROPHIL # 1.7 TH/MM3 (1.8-7.7); BASOPHIL % 0.5 % (0.0-2.0); EOSINOPHIL # 0.1 TH/MM3 (0-0.4); EOSINOPHIL % 3.6 % (0.0-4.0); HEMATOCRIT 28.3 % (39.0-51.0); HEMO FLAGS DIFF FINAL; LYMPH % 34.9 % (9.0-44.0); LYMPHOCYTE # 1.3 TH/MM3 (1.0-4.8); MEAN CORPUSCULAR HEMOGLOBIN 32.4 PG (27.0-34.0); MEAN CORPUSCULAR HGB CONC 34.4 % (32.0-36.0); MONO % 14.4 % (0.0-8.0); NEUT % 46.6 % (16.0-70.0); PLATELET COUNT 123 TH/MM3 (150-450); RED BLOOD COUNT 3.01 MIL/MM3 (4.50-5.90); RED CELL DISTRIBUTION WIDTH 14.9 % (11.6-17.2); WHITE BLOOD COUNT 3.7 TH/MM3 (4.0-11.0)
[2017-03-01 06:30] LABS: BICARBONATE 19.7 MEQ/L (21.0-32.0); POTASSIUM 4.8 MEQ/L (3.5-5.1)
[2017-03-01] MEDS ORDERED: MIDAZOLAM HCL 2 MG/2 ML VIAL ONE (07:08)
[2017-03-01] MEDS ORDERED: ceFAZolin INJ 1,000 MG VIAL ONE (07:09)
[2017-03-01] MEDS ORDERED: VANCOMYCIN HCL 1000 MG VIAL ONE (07:09)
[2017-03-01] MEDS ORDERED: SODIUM CHLOR 0.9% 250 ML INJ 250 ML ONE (07:09)
[2017-03-01] MEDS ORDERED: LIDOCAINE HCL 2% 50 ML VIAL ONE (07:12)
--- NOTE | 2017-03-01 07:12 | MB ---
cc: EKATERINA KRAMER M.D. DATE OF CONSULTATION 02/28/2017 REASON FOR CONSULTATION Third degree AV block, symptomatic bradycardia. HISTORY I was called by Dr. Rosalino Renee about Mr. Nieves. This is an 86-year-old gentleman with high blood pressure, chronic kidney disease who was admitted due to bradycardia, complete AV dissociation, heart rate in the 30s. Blood pressure was high, most likely due to a compensatory mechanism. I was consulted for evaluation and management. The chart was reviewed. The patient was evaluated. I discussed the case with the patient, the and the family member in the room ALLERGIES None reported. SOCIAL HISTORY This gentleman denies smoking and drinking. FAMILY HISTORY Noncontributory to his current medical condition. MEDICATIONS AT HOME The gentleman was on: 1. Lisinopril 20 mg a day. 2. Flomax. 3. Aspirin 4. Citracal plus D3. REVIEW OF SYSTEMS The patient currently refers no chest pain. He refers some shortness of breath and dizziness at home, but no vomiting. No fever. PHYSICAL EXAM Alert, fully oriented. VITAL SIGNS: His blood pressure is 175/73, pulse 35, respiratory rate 18. LUNGS: Ventilated. CARDIOVASCULAR: S1-S2, irregular. No gallop. No murmur. ABDOMEN: Soft. No mass. EXTREMITIES: No edema. Electrocardiogram complex AV dissociation. LABORATORY DATA Hemoglobin 10.3, white blood cells 4.7. Potassium is 5.0, creatinine is 1.69, INR is 1.0. 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 He has some shortness of breath and dizziness. The gentleman is known is on no negative chronotropic medication. His potassium level is adequate. He will need a pacemaker insertion. The risks, the nature and the benefit of the procedure are clearly stated to him. The risks include pneumothorax, cardiac perforation, stroke and even . He understood and agreed to proceed. Procedure will be performed today. MD LONNIE Bañuelos/LATOYA /7:02 PM /7:10 AM
--- NOTE | 2017-03-01 08:10 | PD.CARD ---
DUAL PPM IMPLANTATION PROCEDURE DATE: Mar 01, 2017 DUAL PPM IMPLANTATION PROCEDURE: Dual chamber permanent pacemaker implantation. INDICATIONS FOR PROCEDURE: Mr. Nieves is a 86 -year-old male with complete AV block, symptomatic bradycardia, on no negative chronotropic medication who undergo pacer insertion. The risks, the nature and the benefit of the procedure were clearly stated to him . The risks include pneumothorax, cardiac perforation, stroke and even . He understood and agreed to proceed. PROCEDURE After written informed consent was obtained, the patient was transferred to the EP lab where he was prepped and draped in the usual sterile fashion. Conscious sedation was initiated and maintained throughout the procedure by the anesthesiologist. Once sedation was verified, the left infraclavicular area was with 2% Xylocaine. Using modified Seldinger technique, the left subclavian vein was cannulated on two occasions and two guidewires were advanced. Then, using a #11 blade scalpel, a 2 cm was made two fingerbreadths below the left clavicle. This incision was then taken down through the deep fascial layer using Bovie cautery and blunt dissection. Into the inferomedial direction, device pocket was dissected, then the wire was dissected into the pocket. A 2- 0 Vicryl suture was placed around the wire to prevent backbleeding. At this point, over the lateral wire, an 8-Dutch dilator and introducer was advanced. As the dilator and wire were removed, an active fixation right ventricular pacing and sensing lead was advanced. After adequate pacing and sensing thresholds were obtained, the lead was secured in the pocket using 2-0 Ethibond suture. Then, over the remaining wire, an 8-Dutch dilator and introducer was advanced. As the dilator and wire were removed, an active fixation right atrial pacing and sensing lead was advanced. After adequate pacing and sensing thresholds were obtained, the lead was secured into the pocket using 2-0 Ethibond suture. At that point, the pocket was copiously irrigated using antibiotic solution. This was connected to the generator and placed into the pocket. I did proceed with wound closure. The deep fascial layer was approximated using 2-0 Vicryl suture in a continuous fashion. The subcutaneous layer was approximated with 2-0 Vicryl suture in a continuous fashion. The subcuticular layer was approximated with 2-0 Vicryl suture in a continuous fashion. Dermabond adhesive was applied to the wound followed by sterile pressure dressing. There was no complication. The patient tolerated procedure. Blood loss minimal. IMPLANTED HARDWARE The permanent pacemaker is a [employer]. Model # [id number] serial number [id number]. The right atrial pacing and sensing lead is a [employer] model number [id number], serial number [id number]. The right ventricular pacing and sensing lead is a [employer] model number [id number]- [id number], serial number [id number]. THRESHOLDS The right atrial pacing threshold in the bipolar mode was 0.75V @ 0.5 milliseconds, lead impedance 630 ohms and P-wave at 5.0 millivolts. The right ventricular pacing threshold in the bipolar mode was 0.75V @ 0.5 milliseconds, lead impedance 690 ohms and R-wave at the 11.0 millivolts. SETTINGS The device was set in the DDD 60, upper limit 110 beats per minute. Hysteresis and mode switch are on. CONCLUSIONS: Successful permanent pacemaker implantation, COMMENT AND RECOMMENDATION The patient will be transferred to the telemetry unit. He will be observed. When stable, he can be discharged home. Elias Clay MD Mar 01, 2017 08:10
--- NOTE | 2017-03-01 08:12 | CATHPROC ---
YouMail HIS Report Study Information Study Number Admission Scheduled Start Study Start [id number] 02/28/2017 03/01/2017 Mar 01 2017 6:47AM Referring Institution Admit Source Facility Department 1 Other [facility] General Manager Physician and Clinical Staff Initial Elias Sinclair Principal Strategist German RN, Beto Recorder Kristina Alford,RT(R) Scrub Ericka Portillo,FIREARMS MODEL MAKER TECH2 X-Ray Zaid Lilly,RT(R) Procedures Performed Procedure Lead Insertion Equipment Time Executive Administrator Description Size Mfg Part Number Used/Scraped DERMABOND, ADHESIVE SKIN [id number] 06:50 CORDIS/PACER * Used GLUE MINI *[id number] 06:50 MEDLINE [employer] SUTURE, STRIP PLUS 1/2" * Used *[id number] 06:50 [employer] PACER THORPE, LIMB * 2530 *[id number] Used [id number] 06:50 [employer] PACER PACK, PACER CUSTOM * Used *[id number] 07:36 [employer] PACER SAFE SHEATH, FR8, 13CM FR 8 [id number] Used 07:36 [employer] PACER SAFE SHEATH, FR8, 13CM FR 8 [id number] Used 07:17 Needle Sponge Count 2 22 Used 07:17 Needle Sponge Count 20 200 Used 07:17 Needle Sponge Count 3 3 Used SUTURE, 0 ETHIBOND [CT1] ([id number]), 8pk SUTURE, 2-0 VICRYL [CT1] ([id number]) SUTURE, 2-0 VICRYL [CT1] ([id number]) [id number] 06:50 [employer],WARM AIR CCL * Used *[id number] LEAD, TENDRIL ACTIVE FIXATION 07:50 [facility] [employer] 52CM [id number] Used BIPOLAR LEAD, TENDRIL ACTIVE FIXATION 07:41 [facility] [employer] 58 [id number] Used BIPOLAR PACEMAKER, ASSURITY DR WIES 07:51 [facility] [employer] [id number] Used MRI [facility] PAD, ELECTROSURGICAL 06:50 * [id number] *[id number] Used SURGICAL GROUNDING ORANGE [id number] 06:50 [employer]. ELECTRODE, PRO-PADZ BIPHASIC * Used *[id number] Equipment Model, Serial, Lot Number and Expiration Data Description Model Number Serial Number Lot Number Expiration Date LEAD, TENDRIL ACTIVE FIXATION [id number] 07-19-2017 BIPOLAR LEAD, TENDRIL ACTIVE FIXATION [id number] 06-18-2017 BIPOLAR PACEMAKER, ASSURITY RF MRI [id number] 01-12-2017 History: Allergies Allergy Reaction No Known Allergies History: Risk Factors Family History of Hypertension Dyslipidemia Previous CO Previous Heart Failure Premature CAD Yes No No No No Prior Valve Prior PCI Prior CABG Surgery No No No Cerebrovascular Peripheral Artery Chronic Lung On Dialysis Diabetes Disease Disease Disease No No No No No History: Stress Tests Stress or Imaging Studies Performed No History: Other Current Smoker No Labs Hgb (g/dl) Hct (%) RBC (MIL/MM3) WBC (l/cumm) Platelets (thousands) 12.00-18.00 37.00-55.00 4.80-6.20 4.80-10.80 140.00-450.00 10.0 31 3.3 4.7 143 Glucose (mg/dl) BUN (mg/dl) Creatinine (mg/dl) BUN:Creatinine (1:x) 60.00-110.00 8.00-20.00 0.10-9.00 10.00-20.00 93 31 1.7 18.2 Na (meq/l) K (meq/l) Cl (meq/l) CO2 (mmol/L) Ca (mg/dl) 138.00-146.00 3.80-5.10 101.00-111.00 23.00-30.00 9.00-10.50 134 5 103 24.8 8.5 PT (sec) PTT (sec) INR (PTT:PT) 9.40-11.40 25.10-32.70 0.50-2.00 10.7 24.5 1 CPK-MB (ng/ML) 0.00-7.00 Not Drawn Medication Medication Total Dose (Bolus/Oral) Medication Total Dosage/Unit 2% XYLOCAINE 50 mL FENTANYL 50 mcg OXYGEN 2 l/min VERSED 2 mg Medications (Bolus/Oral) Medication Time Given Dosage/Unit Administered By Reason 2% XYLOCAINE 03/01/2017 7:34:40 AM 50 mL Elias Clay 50 mL 2% XYLOCAINE given in lab by Elias Clay in Left shoulder via Subcutaneous. VERSED 03/01/2017 7:34:56 AM 2 mg Beto Porter RN 2 mg VERSED given in lab by Beto Porter RN via Peripheral IV. FENTANYL 03/01/2017 7:35:38 AM 50 mcg Beto Porter RN 50 mcg FENTANYL given by Beto Porter RN in Right Antecubital via Peripheral IV. OXYGEN 03/01/2017 7:37:40 AM 2 l/min Beto Porter RN 2 l/min OXYGEN given by Beto Porter RN via Nasal. Medication (Drip) Medication Time Given Dosage/Unit Concentration/Unit Diluent (ml) Solutio n ANCEF 03/01/2017 7:32:38 AM 2 g 2 g ANCEF given in lab by Beto Porter RN in Left Antecubital via Peripheral IV. IV Solutions 03/01/2017 7:14:22 AM 0 mL (IV) NaCl .9 Patient arrived on IV Solutions in Right Antecubital via Peripheral IV. Pump/Drip Flow = 20 ml/hr usi ng NaCl .9. IV Solutions 03/01/2017 7:14:54 AM 0 mL (IV) 1000 NaCl .9 IV Solutions given in lab by Beto Porter RN in Left Antecubital via Peripheral IV. Pump/Drip Flow = 20 ml/hr using NaCl .9. VANCOCIN 03/01/2017 7:24:30 AM 1 g 1 g VANCOCIN given in lab by Beto Porter RN in Right Antecubital via Peripheral IV. Final Case Assessment Cardiovascular HR Rhythm NIBP Chest Pain 74 PACED 173/77 0 Edema Present Skin color Skin None Normal Warm Dry Circulatory - Lower Extremities Color Lower Right Color Lower Left Normal Normal Neurological State Oriented to time-place- Alert Moves all extremities person Respiration - General SpO2 (%) O2 (lpm) 100 2 Chronological Log Time Study Chronological Log 6:45:00 Patient arrived via Bed. 7:13:06 Patient Name, D.O.B, / Armband Verified By R.N. 7:13:08 Pre-op and post- op instructions given; patient acknowledges understanding of instructions . 7:13:09 Verbal Stimulation=2 Physical Stimulation=2 Airway=2 Respiration=2 TOTAL=8. (0=absent, 1=caceres ited, 2=present) 7:13:57 Patient has been NPO for More than 6Hrs. 7:13:59 Skin Breakdown-NONE 7:14:05 Patient Warmer Placed on the Table. 7:14:09 [place] Prominences Protected 7:14:11 Disposable Defibrillator Pads Placed On Patient. 7:14:14 A # 20 IV was noted in the Antecubital (right). Grade = 0 7:14:22 Patient arrived on IV Solutions in Right Antecubital via Peripheral IV. Pump/Drip Flow = 20 ml/hr using NaCl .9. 7:14:47 A # 20 IV was noted in the Antecubital (left). Grade = 0 IV Solutions given in lab by Beto Porter RN in Left Antecubital via Peripheral IV. Pump/Drip Fl ow = 20 ml/hr using NaCl 7:14:54 .9. 7:15:16 History and physical on the chart or being dictated. 7:15:21 Right Upper Chest Prepped Times Two. 7:15:25 Left Upper Chest Prepped Times Two. Vitals capture started with the following parameters, Patient=Adult, Interval=15 min, Initial Pr awutbr=718 mmHg, 7:15:41 Deflation Rate=5 mmHg 7:15:44 Bovie ground pad applied to: RIGHT THIGH 7:15:57 2% CHLORHEXIDINE GLUCONATE WASH AND NASAL SWIPE DONE PRIOR TO PROCEDURE. First Sponge And Instrument Count Done by Kristina Alford, RT(R). 7:16:04 Hypo's: 3, Sponges: 20, Bovie/scratch: 2 Sutures: 10, Blades: 1, Instruments: 26, Syveck Patches: 0 7:16:57 paged 7:17:08 HR=34 bpm, WTWH=389/65 mmhg, SpO2=98.0 %, Resp=18 B/min, Pain=0, Carlyn=10, Chong=2 7:17:36 Reference ECG taken 7:17:54 MD responded 7:21:34 HR=35 bpm, VTGH=460/63 mmhg, FxI4=666.0 %, Resp=24 B/min, Pain=0, Carlyn=10, Chong=2 7:24:30 1 g VANCOCIN given in lab by Beto Porter RN in Right Antecubital via Peripheral IV. 7:27:16 HR=34 bpm, AEEM=806/66 mmhg, VjP4=780.0 %, Resp=17 B/min, Pain=0, Carlyn=10, Chong=2 7:31:32 HR=32 bpm, ZBWP=991/65 mmhg, PdL9=884.0 %, Resp=17 B/min, Pain=0, Carlyn=10, Chong=2 7:32:38 2 g ANCEF given in lab by Beto Porter RN in Left Antecubital via Peripheral IV. 7:32:55 MD arrived. Time Out. Correct patient, procedure, procedure equipment, site and side verified with physician present. Time 7:34:24 concurred by MD, individual staff and CARBONATION EQUIPMENT TENDER. Time Out #2 - Consents verified, patient in correct position, all results are labled and display ed, safety precautions 7:34:29 taken, antibiotics administered. Time out concurred by MD, individual staff and CARBONATION EQUIPMENT TENDER in procedur e 7:34:31 Case Start 7:34:34 Reference ECG taken 7:34:40 50 mL 2% XYLOCAINE given in lab by Elias Clay in Left shoulder via Subcutaneous. 7:34:56 2 mg VERSED given in lab by Beto Porter RN via Peripheral IV. 7:35:38 50 mcg FENTANYL given by Beto Porter RN in Right Antecubital via Peripheral IV. 7:37:30 HR=32 bpm, AZJU=585/71 mmhg, SpO2=99.0 %, Resp=15 B/min, Pain=0, Carlyn=10, Chong=2 7:37:40 2 l/min OXYGEN given by Beto Porter RN via Nasal. 7:38:27 Vascular access was obtained in the Subclav. Vein (Lft. 7:38:32 Wire inserted 7:41:03 Vascular access was obtained in the Subclav. Vein (Lft. 2ND 7:41:11 Wire inserted 7:41:22 Surgical Incision Made. 7:41:34 HR=33 bpm, SSZA=981/58 mmhg, SpO2=95.0 %, Resp=11 B/min, Pain=0, Carlyn=10, Chong=2 7:42:45 A pocket was created at the Lt. upper chest. 7:42:59 A SAFE SHEATH, FR8, 13CM FR 8 was advanced into the Lt. upper chest using the Percutaneous t echnique. 7:43:36 A LEAD, TENDRIL ACTIVE FIXATION BIPOLAR 58 was inserted and positioned in the RV. 7:45:22 Lead placement verified under fluoroscopy 7:46:27 HR=60 bpm, AKHS=327/66 mmhg, SpO2=97.0 %, Resp=13 B/min, Pain=0, Carlyn=10, Chong=2 7:46:34 The RV lead impedance and threshold being tested. 7:47:18 The RV lead was sutured to the fascia. 7:48:47 A SAFE SHEATH, FR8, 13CM FR 8 was advanced into the Lt. upper chest using the Percutaneous t echnique. 7:52:01 HR=60 bpm, RITO=226/64 mmhg, SpO2=99.0 %, Resp=8 B/min, Pain=0, Carlyn=10, Chong=2 7:52:19 A LEAD, TENDRIL ACTIVE FIXATION BIPOLAR 52CM was inserted and positioned in the RA. 7:53:40 The Atrial lead impedance and threshold is being tested. 7:54:21 The Atrial lead was sutured to the fascia. 7:55:29 Pocket flushed with antibiotic solution 7:55:30 A PACEMAKER, ASSURITY DR RF MRI was connected and placed in the pocket. 7:55:44 The pocket was closed. 7:57:08 HR=76 bpm, CVQY=655/79 mmhg, LiV4=899.0 %, Resp=34 B/min, Pain=0, Carlyn=10, Chong=2 7:57:45 Implant Procedure was performed. 7:57:50 A PPM Implant . (Dual) Second Sponge And Instrument Count Done by Elias Clay. 7:58:19 Hypo's: 3, Sponges: 20, Bovie/scratch: 2 Sutures: ~SUTURE~, Blades: 1, Instruments: ~INSTRU~, Syveck Patches: ~SYVECK PATCH~ 8:01:38 Bedside Report will be given. 8:02:03 Case End 8:02:06 Steri-strips and a sterile dressing applied to site. The Final Sponge And Instrument Count Done by Elias Clay. 8:02:08 Hypo's: 3, Sponges: 20, Bovie/scratch: 2 Sutures: 10, Blades: 1, Instruments: 26, Syveck Patches: ~SYVECK PATCH~ 8:02:09 HR=74 bpm, MDWH=751/77 mmhg, MlV8=532.0 %, Resp=12 B/min, Pain=0, Carlyn=10, Chong=2 8:02:31 A sling was placed on the affected arm. Assessment: Final Case, HR=74 BPM, Rhythm=PACED, LPTP=145/77 mmhg, Chest Pain=0, Edema=None, Color=Normal, Skin = Warm, Dry Lower Right Extremities: Color=Normal 8:02:59 Lower Left Extremities: Color=Normal Neurological: State=Alert, Ox3, OLMOS Respiration: ViZ8=818 %, O2=2 lpm 8:03:57 No case complications noted. 8:04:00 Cine recording checked. 8:04:01 Bedside Report will be given. 8:04:05 Implantable Device card placed in patient's chart. 8:06:23 HR=76 bpm, AOHQ=641/75 mmhg, CcK3=282.0 %, Resp=15 B/min, Pain=0, Carlyn=10, Chong=2 8:06:38 Vitals capture stopped. 8:15:19 [facility] End Study - Contrast Media Used In Study Contrast Total Opened (mL) Total Used (mL) Total Wasted (mL) Omnipaque 0 0 0 End Study - Maximum Contrast Load Max Contrast Load (mL) 188.2 End Study - Radiation Exposure Fluoro Time (minutes) 3.4 End Study - Patient Disposition Complications Transferred To Interventional Outcome No Telemetry Bed No attempt made
[2017-03-01] MEDS ORDERED: ONDANSETRON HCL 4 MG/2 ML VIAL IV PRN (08:15)
[2017-03-01] MEDS ORDERED: ACETAMINOPHEN/CODEINE 300 MG/30 MG TAB PO PRN (08:15)
[2017-03-01] MEDS: ASPIRIN EC 81 MG TABEC PO SCH (08:41)
[2017-03-01] MEDS: DOCUSATE SODIUM 50 MG/SENNA 8.6 MG TAB PO SCH ×2 (08:41→21:00)
[2017-03-01] MEDS: LISINOPRIL 20 MG TAB PO SCH (08:41)
[2017-03-01] MEDS: hydrALAZINE HCL 20 MG/ML VIAL IV PUSH PRN ×2 (08:41→14:26)
[2017-03-01] MEDS: SODIUM CHLORIDE 0.9% FLUSH 10 ML FLUSH IV FLUSH SCH ×2 (08:42→21:00)
[2017-03-01] MEDS: cefTRIAXone INJ 1,000 MG in SODIUM CHLORIDE 0.9% INJ 100 ML IV SCH (08:42)
--- NOTE | 2017-03-01 09:01 | HHI.FPPN ---
Subjective Remarks No acute events overnight. Afebrile, vital signs stable. Patient remained bradycardic in the 30s without symptoms. He was seen this morning status post pacemaker implantation. He denies any pain. States he is feeling well. Requests a cup of coffee. (Camila Kee MD R3) Objective Vitals Vital Signs Date Time Temp Pulse Resp B/P Pulse Ox O2 Delivery O2 Flow Rate FiO2 03/01/17 06:10 34 03/01/17 05:00 33 03/01/17 04:00 34 03/01/17 03:00 98.0 35 18 141/57 94 03/01/17 03:00 32 03/01/17 02:00 34 03/01/17 01:00 32 03/01/17 00:00 34 02/28/17 23:00 97.7 34 18 160/57 95 02/28/17 23:00 34 02/28/17 22:00 34 02/28/17 21:00 32 02/28/17 20:00 34 02/28/17 19:00 97.5 35 18 145/65 95 02/28/17 18:45 35 16 175/73 98 Room Air 02/28/17 13:42 36 16 162/70 99 Room Air 02/28/17 12:54 36 16 171/74 100 Room Air 02/28/17 12:30 37 16 189/78 02/28/17 12:13 100 02/28/17 12:13 100 Room Air 02/28/17 12:13 37 16 100 Room Air 02/28/17 11:53 97.8 39 16 219/88 100 I/O 02/28/17 02/28/17 02/28/17 03/01/17 03/01/17 03/01/17 07:00 15:00 23:00 07:00 15:00 23:00 Intake Total 975 ml Output Total 270 ml Balance 705 ml Intake Oral 240 ml IV Total 735 ml Output Urine Total 270 ml # Voids 3 # Bowel Movements 1 (Camila Kee MD R3) Result Diagram: 03/01/1753903/01/17 0540 Objective Remarks Gen.: No acute distress Head: Normocephalic. Atraumatic. EENT: Pupils equal round and reactive to light. Nose without drainage. Airway intact. Throat without injection. Cardiovascular: Bradycardic. No murmurs, rubs or gallops. Respiratory: Lungs clear to auscultation bilaterally. No wheezes or rhonchi. Chest: Left upper chest with bandage status post pacemaker implantation. Dressing clean/dry/intact. Abdomen: Soft, nontender, nondistended. No peritoneal signs. Musculoskeletal: No gross deformities. No edema. Left arm in sling. Skin: No obvious rashes or erythema. Neuro: Sensory and motor grossly intact. Cranial nerves II through XII grossly intact. Psych: Appropriate mood and affect (Camila Kee MD R3) A/P Assessment and Plan 86-year-old male with a past medical history significant for coronary artery disease, hypertension, chronic renal insufficiency presents to the emergency department in third-degree heart block and bradycardic to the 30s. 1. Third-degree heart block EKG significant for third-degree heart block, Dr. Santos reviewed the EKG and recommended pacemaker implantation. Dr. Clay, consulted for pacemaker placement. Pacemaker placed this morning. Patient tolerated procedure without complications. 2. Urinary tract infection Started Rocephin as patient's UA was significant for large leukocyte esterase, positive nitrites and moderate bacteria. Anticipate discharge on by mouth antibiotics. 3. Hypertension Patient on lisinopril at home, continue. Hypertensive in the emergency department to 219/88. Hydralazine when necessary for SBP greater than 180, DBP greater than 100. 4. CAD Continue aspirin 5. BPH Continue home Flomax 6. FEN Normal saline at 100 cc/hour following procedure Electrolytes: Replete when necessary Heart healthy diet SCDs (Camila Kee MD R3) Attending Attestation Patient seen and examined. Discussed with Dr. Kee. Agree with assessment and plan as documented. (Francis Ballard Jr., MD) Problem List: (1) Third degree heart block Status: Acute (2) Hypertension Status: Chronic (3) Coronary arteriosclerosis Status: Chronic (4) Benign prostatic hypertroph without outflow obstruction Status: Chronic (5) Chronic kidney disease Status: Chronic (Camila Kee MD R3) Camila Kee MD R3 Mar 01, 2017 09:00 Francis Ballard Jr., MD Mar 01, 2017 11:38
--- NOTE | 2017-03-01 09:25 | RADRPT ---
EXAM DATE/TIME: 03/01/2017 08:15 [facility] COMPARISON: CHEST SINGLE AP, February 28, 2017, 12:07. INDICATIONS : Evaluate for pneumothorax. MEDICAL HISTORY : Hypertension. Myocardial infarction. SURGICAL HISTORY : Pacemaker. ENCOUNTER: Subsequent ACUITY: 2 days PAIN SCORE: 0/10 LOCATION: Bilateral chest FINDINGS: A small right apical pneumothorax is noted. Lungs are hyperinflated and demonstrate mild diffuse interstitial prominence. There is no evidence of consolidating infiltrate. Pacemaker is in stable position. CONCLUSION: Very small right apical pneumothorax. Chronic obstructive pulmonary disease. Pacemaker Jonah Manuel MD on March 01, 2017 at 9:20 Board Certified Radiologist. This report was verified electronically.
[2017-03-01] MEDS: ACETAMINOPHEN/CODEINE 300 MG/30 MG TAB PO PRN ×3 (14:10→22:15)
[2017-03-01] MEDS: ceFAZolin 2 GM PREMIX 50 ML IV SCH ×2 (14:16→22:16)
--- NOTE | 2017-03-01 18:23 | EKG ---
Date Performed: 03/01/2017 Time Performed: 09:07:02 PTAGE: 86 years EKG: Sinus rhythm with probable ventricular demand pacemaker. COMPARED TO PRIOR ELECTROCARDIOGRAM, High degree heart b lock is no longer present and probable pacemaker is present. PREVIOUS TRACING : 02/28/2017 12.01 DOCTOR: Uriel Saavedra Interpretating Date/Time 03/01/2017 18:22:09
[2017-03-01] MEDS: TAMSULOSIN HCL 0.4 MG CAP PO SCH (22:16)
[2017-03-02] VITALS (19 sets, daily range): BP systolic 124–182; BP diastolic 62–98; PULSE 81–101; RESP 16–18; TEMP 97.7–98.4; O2SAT 92–95
[2017-03-02] MEDS: ceFAZolin 2 GM PREMIX 50 ML IV SCH (06:00)
[2017-03-02] MEDS: SODIUM CHLOR 0.9% 1000 ML INJ 1,000 ML IV SCH (06:00)
[2017-03-02 06:52] LABS: AUTOMATED NEUTROPHIL # 3.5 TH/MM3 (1.8-7.7); BASOPHIL % 0.6 % (0.0-2.0); EOSINOPHIL # 0.1 TH/MM3 (0-0.4); EOSINOPHIL % 1.3 % (0.0-4.0); HEMO FLAGS DIFF FINAL; LYMPH % 22.3 % (9.0-44.0); LYMPHOCYTE # 1.2 TH/MM3 (1.0-4.8); MEAN CELL VOLUME 94.3 FL (80.0-100.0); MEAN CORPUSCULAR HEMOGLOBIN 31.6 PG (27.0-34.0); MEAN CORPUSCULAR HGB CONC 33.5 % (32.0-36.0); NEUT % 64.8 % (16.0-70.0); PLATELET COUNT 119 TH/MM3 (150-450); RED BLOOD COUNT 3.08 MIL/MM3 (4.50-5.90); RED CELL DISTRIBUTION WIDTH 14.4 % (11.6-17.2); WHITE BLOOD COUNT 5.4 TH/MM3 (4.0-11.0)
[2017-03-02 07:19] LABS: POTASSIUM 4.5 MEQ/L (3.5-5.1)
--- NOTE | 2017-03-02 07:51 | EKG ---
Date Performed: 03/02/2017 Time Performed: 05:34:40 PTAGE: 86 years EKG: Baseline artifact present Probable Sinus rhythm with premature ectopic beats Incomplete LBBB Possible Extensive infarct - age undetermined Abnormal ECG COMPARED TO PRIOR ELECTROCARDIOGRAM, Rate has increased and frequent ectopic beats are present. PREVIOUS TRACING : 03/01/2017 09.07 DOCTOR: Uriel Saavedra Interpretating Date/Time 03/02/2017 07:50:02
--- NOTE | 2017-03-02 07:52 | PD.CARD.PN ---
Subjective Subjective Remarks Stable, no complaints, status post permanent pacemaker implantation. Objective Medications Current Medications Medications (Trade) Dose Ordered Sig/Tom Route Start Time Stop Time Status Last Admin (NS 1000 ml Inj) 1,000 ml @ 100 mls/hr Q10H IV 02/28/17 15:00 03/01/17 22:15 (NS Flush) 2 ml UNSCH PRN IV FLUSH 02/28/17 14:30 (NS Flush) 2 ml BID IV FLUSH 02/28/17 21:00 03/01/17 08:42 (Tylenol) 650 mg Q4H PRN PO 02/28/17 14:30 (Narcan Inj) 0.4 mg UNSCH PRN IV 02/28/17 14:30 (Jessica-Colace) 1 tab BID PO 02/28/17 21:00 03/01/17 08:41 (Milk Of Magnesia Liq) 30 ml Q12H PRN PO 02/28/17 14:30 (Senokot) 17.2 mg Q12H PRN PO 02/28/17 14:30 (Dulcolax Supp) 10 mg DAILY PRN RECTAL 02/28/17 14:30 (Lactulose Liq) 30 ml DAILY PRN PO 02/28/17 14:30 (Apresoline Inj) 10 mg Q4H PRN IV PUSH 02/28/17 14:30 03/01/17 14:26 (Ecotrin Ec) 81 mg DAILY PO 03/01/17 09:00 03/01/17 08:41 (Prinivil) 20 mg DAILY PO 03/01/17 09:00 03/01/17 08:41 Tamsulosin HCl 0.4 mg 0.4 mg HS PO 02/28/17 21:00 03/01/17 22:16 (Rocephin Inj/NS Inj) 100 ml @ 200 mls/hr Q24H IV 03/01/17 09:00 03/01/17 08:42 (Zofran Inj) 4 mg Q4H PRN IV 03/01/17 08:15 03/02/17 03:26 (Tylenol-Codeine #3) 1 tab Q4H PRN PO 03/01/17 08:15 03/01/17 22:15 (Tylenol-Codeine #3) 2 tab Q4H PRN PO 03/01/17 08:15 Vital Signs / I&O Vital Signs Date Time Temp Pulse Resp B/P Pulse Ox O2 Delivery O2 Flow Rate FiO2 03/02/17 07:38 89 03/02/17 07:38 98.4 98 18 182/77 93 03/02/17 06:40 93 03/02/17 05:16 92 03/02/17 04:07 87 03/02/17 03:40 98.3 92 16 124/98 92 03/02/17 03:40 82 03/02/17 02:02 88 03/02/17 01:00 86 03/02/17 00:00 89 03/01/17 23:30 98.4 90 16 169/92 100 03/01/17 23:00 85 03/01/17 22:00 84 03/01/17 21:00 84 03/01/17 20:52 98.6 88 18 169/83 93 03/01/17 20:52 86 03/01/17 18:09 87 03/01/17 17:00 74 03/01/17 16:00 80 03/01/17 15:17 84 03/01/17 15:05 97.6 87 17 163/68 95 03/01/17 14:20 186/77 03/01/17 14:00 84 03/01/17 13:00 84 03/01/17 12:17 78 03/01/17 11:15 97.6 67 17 164/64 93 03/01/17 11:00 68 03/01/17 11:00 97.6 67 17 164/64 93 03/01/17 10:28 76 158/65 96 03/01/17 10:00 74 03/01/17 09:30 76 18 169/72 96 03/01/17 09:00 70 03/01/17 08:30 71 03/01/17 08:20 97.5 74 19 194/83 100 I/O 03/01/17 03/01/17 03/01/17 03/02/17 03/02/17 03/02/17 07:00 15:00 23:00 07:00 15:00 23:00 Intake Total 975 ml 1143 ml 1220 ml Output Total 270 ml 650 ml Balance 705 ml 1143 ml 570 ml Intake Oral 240 ml 480 ml 480 ml IV Total 735 ml 663 ml 740 ml Output Urine Total 270 ml 650 ml # Voids 3 3 4 # Bowel Movements 1 1 Physical Exam GENERAL: Well-nourished, well-developed patient. SKIN: Warm and dry. Left chest wall incision well approximated without erythema or drainage. HEAD: Normocephalic. EYES: No scleral icterus. No injection or drainage. NECK: Supple, trachea midline. No JVD or lymphadenopathy. CARDIOVASCULAR: Regular rate and rhythm without murmurs, gallops, or rubs. RESPIRATORY: Breath sounds equal bilaterally. No accessory muscle use. GASTROINTESTINAL: Abdomen soft, non-tender, nondistended. EXTREMITIES: No cyanosis, or edema. NEUROLOGICAL: Awake, alert, and oriented x 3. Non-focal. Laboratory Laboratory Tests Test 03/02/17 06:38 White Blood Count 5.4 TH/MM3 Red Blood Count 3.08 MIL/MM3 Hemoglobin 9.7 GM/DL Hematocrit 29.0 % Mean Corpuscular Volume 94.3 FL Mean Corpuscular Hemoglobin 31.6 PG Mean Corpuscular Hemoglobin 33.5 % Concent Red Cell Distribution Width 14.4 % Platelet Count 119 TH/MM3 Mean Platelet Volume 9.4 FL Neutrophils (%) (Auto) 64.8 % Lymphocytes (%) (Auto) 22.3 % Monocytes (%) (Auto) 11.0 % Eosinophils (%) (Auto) 1.3 % Basophils (%) (Auto) 0.6 % Neutrophils # (Auto) 3.5 TH/MM3 Lymphocytes # (Auto) 1.2 TH/MM3 Monocytes # (Auto) 0.6 TH/MM3 Eosinophils # (Auto) 0.1 TH/MM3 Basophils # (Auto) 0.0 TH/MM3 CBC Comment DIFF FINAL Differential Comment Sodium Level 129 MEQ/L Potassium Level 4.5 MEQ/L Chloride Level 100 MEQ/L Carbon Dioxide Level 18.0 MEQ/L Anion Gap 11 MEQ/L Blood Urea Nitrogen 24 MG/DL Creatinine 1.37 MG/DL Estimat Glomerular Filtration 49 ML/MIN Rate Random Glucose 107 MG/DL Calcium Level 7.9 MG/DL Imaging Last Impressions Chest X-Ray 03/01/17 0000 Signed Impressions: Service Date/Time: Wednesday, March 01, 2017 08:15 - CONCLUSION: Very small right apical pneumothorax. Chronic obstructive pulmonary disease. Pacemaker Jonah Manuel MD Assessment and Plan Problem List: (1) Third degree heart block Assessment and Plan: Presented with third-degree heart block, complete AV disassociation, now status post permanent pacemaker. (2) S/P cardiac pacemaker procedure Assessment and Plan: Pacing appropriately, very small apical pneumothorax noted on chest x-ray. Will order PA and lateral study to reevaluate. If stable can be discharged home from EP standpoint when cleared by managing medical team. Follow-up with Dr. Clay in 2 weeks. Assessment and Plan Discussed with patient, RN, Dr. Clay. Yenifer Hobbs Mar 02, 2017 07:52
[2017-03-02] MEDS: cefTRIAXone INJ 1,000 MG in SODIUM CHLORIDE 0.9% INJ 100 ML IV SCH (09:43)
[2017-03-02] MEDS: DOCUSATE SODIUM 50 MG/SENNA 8.6 MG TAB PO SCH (09:43)
[2017-03-02] MEDS: ASPIRIN EC 81 MG TABEC PO SCH (09:43)
[2017-03-02] MEDS: LISINOPRIL 20 MG TAB PO SCH (09:43)
[2017-03-02] MEDS: SODIUM CHLORIDE 0.9% FLUSH 10 ML FLUSH IV FLUSH SCH (09:44)
[2017-03-02] MEDS: hydrALAZINE HCL 20 MG/ML VIAL IV PUSH PRN (11:31)
--- NOTE | 2017-03-02 12:52 | RADRPT ---
EXAM DATE/TIME: 03/02/2017 10:49 [facility] COMPARISON: CHEST SINGLE AP, March 01, 2017, 8:15. INDICATIONS : Pneumothorax, post pacemaker yesterday. MEDICAL HISTORY : Hypertension. Myocardial infarction. SURGICAL HISTORY : Pacemaker. ENCOUNTER: Subsequent ACUITY: 3 days PAIN SCORE: 0/10 LOCATION: Bilateral chest FINDINGS: There are bilateral effusions. There is diffuse interstitial prominence suggesting congestive failure . The Jikmvd-j-Yrwm in good position. There is minimal right apical pneumothorax is stable compared to previous exam. The visualized bony structures are intact. CONCLUSION: 1. Minimal right apical pneumothorax unchanged from previous. 2. Small bilateral effusions. Trevor Alejandre MD on March 02, 2017 at 12:48 Board Certified Radiologist. This report was verified electronically.
[2017-03-02] MEDS ORDERED: FUROSEMIDE 20 MG TAB PO ONE (16:15)
--- NOTE | 2017-03-02 16:18 | HHI.FPPN ---
Subjective Remarks Patient is sore overlying the pacemaker. Otherwise, not reporting chest pain. He denies shortness of breath and has been out of bed ambulating without difficulty. He reports eating whole meals without difficulty. He denies any irregular heart beats, or skipped beats. Objective Vitals Vital Signs Date Time Temp Pulse Resp B/P Pulse Ox O2 Delivery O2 Flow Rate FiO2 03/02/17 16:02 97 03/02/17 15:25 87 03/02/17 15:25 97.7 101 18 167/89 95 03/02/17 14:05 92 03/02/17 13:14 158/75 03/02/17 13:01 88 03/02/17 12:04 92 03/02/17 11:33 90 03/02/17 11:33 97.7 94 18 174/81 95 03/02/17 10:18 91 03/02/17 09:00 81 03/02/17 08:30 84 03/02/17 08:30 97.8 99 18 167/62 93 03/02/17 07:38 89 03/02/17 07:38 98.4 98 18 182/77 93 03/02/17 06:40 93 03/02/17 05:16 92 03/02/17 04:07 87 03/02/17 03:40 98.3 92 16 124/98 92 03/02/17 03:40 82 03/02/17 02:02 88 03/02/17 01:00 86 03/02/17 00:00 89 03/01/17 23:30 98.4 90 16 169/92 100 03/01/17 23:00 85 03/01/17 22:00 84 03/01/17 21:00 84 03/01/17 20:52 98.6 88 18 169/83 93 03/01/17 20:52 86 03/01/17 18:09 87 03/01/17 17:00 74 I/O 03/01/17 03/01/17 03/01/17 03/02/17 03/02/17 03/02/17 07:00 15:00 23:00 07:00 15:00 23:00 Intake Total 975 ml 1143 ml 1220 ml Output Total 270 ml 650 ml Balance 705 ml 1143 ml 570 ml Intake Oral 240 ml 480 ml 480 ml IV Total 735 ml 663 ml 740 ml Output Urine Total 270 ml 650 ml # Voids 3 3 4 # Bowel Movements 1 1 Result Diagram: 03/02/17 0638 03/02/17 0638 Imaging Last Impressions Chest X-Ray 03/02/17 0000 Signed Impressions: Service Date/Time: Thursday, March 02, 2017 10:49 - CONCLUSION: 1. Minimal right apical pneumothorax unchanged from previous. 2. Small bilateral effusions. Trevor Alejandre MD Objective Remarks Gen.: No acute distress Head: Normocephalic. Atraumatic. EENT: Pupils equal round and reactive to light. Nose without drainage. Airway intact. Throat without injection. Cardiovascular: Bradycardic. No murmurs, rubs or gallops. Respiratory: Lungs clear to auscultation bilaterally. No wheezes or rhonchi. Chest: Left upper chest with bandage status post pacemaker implantation. Dressing clean/dry/intact. Abdomen: Soft, nontender, nondistended. No peritoneal signs. Musculoskeletal: No gross deformities. No edema. Left arm in sling. Skin: No obvious rashes or erythema. Neuro: Sensory and motor grossly intact. Cranial nerves II through XII grossly intact. Psych: Appropriate mood and affect A/P Assessment and Plan 86-year-old male with a past medical history significant for coronary artery disease, hypertension, chronic renal insufficiency presents to the emergency department in third-degree heart block and bradycardic to the 30s. 1. Third-degree heart block EKG significant for third-degree heart block, Dr. Santos reviewed the EKG and recommended pacemaker implantation. Dr. Clay, consulted for pacemaker placement. Pacemaker placed on 03/01. Patient tolerated procedure without complications. Cleared for discharge from a cardiology standpoint. 2. Urinary tract infection Started Rocephin as patient's UA was significant for large leukocyte esterase, positive nitrites and moderate bacteria. Received 2 doses of IV ceftriaxone. Micro: >100,000 staph aureus on culture. 3. Hypertension Patient on lisinopril at home, continue. Hypertensive in the emergency department to 219/88. Hydralazine when necessary for SBP greater than 180, DBP greater than 100. -Has remained hypertensive to 170s-160s systolic on 03/02. Repeat chest x-ray showed "small pulmonary effusions" and vascular congestion. Stop IV fluids and give by mouth Lasix 20 mg by mouth 1. 4. CAD Continue aspirin 5. BPH Continue home Flomax 6. FEN Stop IVF tolerating PO intake. Electrolytes: Replete when necessary Heart healthy diet SCDs rohini Balalrd. Discharge Planning If clinically well after PO Lasix, and no signs of fluid overload, can be d/c' ed home with follow up with pcp Problem List: (1) Third degree heart block Status: Acute (2) Hypertension Status: Chronic (3) Coronary arteriosclerosis Status: Chronic (4) Benign prostatic hypertroph without outflow obstruction Status: Chronic (5) Chronic kidney disease Status: Chronic Amrik Mota MD R2 Mar 02, 2017 16:18
[2017-03-02] MEDS ORDERED: CEPH500C PO ×2 (17:56→18:02)
--- NOTE | 2017-03-02 17:57 | HHI.DCPOC ---
Discharge Care Plan Diagnosis: (1) Third degree heart block (2) Ventricular premature beats (3) S/P biventricular cardiac pacemaker procedure Goals to Promote Your Health * To prevent worsening of your condition and complications * To maintain your health at the optimal level Directions to Meet Your Goals Take your medications as prescribed Follow your dietary instruction Follow activity as directed Keep your appointments as scheduled Take your immunizations and boosters as scheduled If your symptoms worsen call your PCP, if no PCP go to Urgent Care Center or Emergency Room Smoking is Dangerous to Your Health. Avoid second hand smoke Call the 24-hour hour crisis hotline for domestic abuse at Amrik Mota MD R2 Mar 02, 2017 17:56
[2017-03-02] MEDS ORDERED: CEPHALEXIN MONOHYDRATE 500 MG CAP PO SCH (22:00)
[2017-03-08] MEDS ORDERED: FURO20TA PO (14:50)
[2017-03-24] MEDS ORDERED: TRIA40P I-ARTICULR (14:47)
== END 2017-03-02 18:12 | disposition home or self-care (01) | DRG 243 ==
LOC: NEPE 11:42 → NEDA 13:42 → HCIN 19:51
PROVIDERS: ADMIT Family Medicine; ATTEND Family Medicine
PROC: 0JH606Z Insertion of Pacemaker, Dual Chamber into Chest Subcutaneous Tissue and Fascia, Open Approach (ICD-10-PCS; 2017-03-01)
PROC: 02HK3JZ Insertion of Pacemaker Lead into Right Ventricle, Percutaneous Approach (ICD-10-PCS; 2017-03-01)
PROC: 02H63JZ Insertion of Pacemaker Lead into Right Atrium, Percutaneous Approach (ICD-10-PCS; principal; 2017-03-01 07:30)
DX: I44.2 Atrioventricular block, complete (principal); N39.0 Urinary tract infection, site not specified; B95.61 Methicillin susceptible Staphylococcus aureus infection as the cause of diseases classified elsewhere; I12.9 Hypertensive chronic kidney disease with stage 1 through stage 4 chronic kidney disease, or unspecified chronic kidney disease; N18.9 Chronic kidney disease, unspecified; R00.1 Bradycardia, unspecified; I25.2 Old myocardial infarction; I25.10 Atherosclerotic heart disease of native coronary artery without angina pectoris; N40.0 Benign prostatic hyperplasia without lower urinary tract symptoms; D64.9 Anemia, unspecified
CPT/HCPCS: 33208; 71010; 71020; 80048; 80053; 81001; 83735; 85025; 85610; 85730; 86403; 87086; 87147; 87186; 93005; 96374; C1785; C1898; J0360; J0690; J0696; J2250; J2405; J3010; J3370; J7030; J7050

== ENCOUNTER 2017-09-26 07:19 | Emergency (ER) | payer MEDICARE ==
[~2017-09-26] VITALS: Ht 165.1 cm; Wt 64.0 kg
[~2017-09-26 07:19] MED LIST changes: -ASCO500C PO; -ASPI-110 PO; +ASPI1TAB57 PO; +FINA5TAB2 PO; -LISI-515 PO; -MULT-6 PO; -OMEG100037
[2017-09-26 07:21] VITALS: BP 141/84; PULSE 94; RESP 14; TEMP 97.8; O2SAT 98
[2017-09-26 07:33] VITALS: BP 130/91; PULSE 97; RESP 17; O2SAT 100
--- NOTE | 2017-09-26 08:03 | PD ---
HPI Chief Complaint: Back/ Neck Pain or Injury Time Seen by Provider: 07:47 Travel History International Travel<30 days: No Contact w/Intl Traveler<30days: No Traveled to known affect area: No History of Present Illness HPI An 86 year old male presents to the emergency department for back pain. The pain is in the midline lower back. It has been hurting on and off for the past 3-4 days. He has tried Alleve, heat, and ice which helped a little in the beginning but it stopped helping. The pain is 10/10 and does not radiate anywhere. It happens about 15 times throughout the day and sometimes wakes him up. Changing positions sometimes alleviates the pain. He has had some pain while urinating for the past year but this is not new. His PCP told him he had "a small amount of blood" in his urine 4-5 months ago. He denies blood in his stool or urine, fever, weight loss, trauma, excessive exercise, or abdominal pain. History Past Medical History Narrative Medical Hx of controlled hypertension, CAD, and BPH Medical History: Denies Significant Hx Past Surgical History Narrative Surgical Pacemaker in March 2017 Social History Alcohol Use: No Tobacco Use: Yes Allergies-Medications (Allergen,Severity, Reaction): Coded Allergies: No Known Allergies (Verified Adverse Reaction, Unknown, 09/26/17) Reported Meds & Prescriptions Reported Meds & Active Scripts Active Medrol Dosepak (Methylprednisolone) 4 Mg Dspk 4 Mg PO DIRECTED Per Pharmacist direction Arthrotec 50 (Diclofenac-Misoprostol) 50-0.2 Mg Tab 1 Tab PO BID Macrobid (Nitrofurantoin Monoh/Nitrofur Macro) 100 Mg Cap 100 Mg PO BID 7 Days Flexeril (Cyclobenzaprine HCl) 10 Mg Tab 10 Mg PO TID Finasteride 5 Mg Tab 5 Mg PO DAILY Do not crush. Reported Vitamin B-12 (Cyanocobalamin) 1,000 Mcg Tab 1,000 Mcg PO DAILY Flomax (Tamsulosin HCl) 0.4 Mg Cap 0.4 Mg PO HS Aspirin 81 (Aspirin) 81 Mg Tabdr 81 Mg PO DAILY Citracal + D3 Maximum (Calcium Citrate-Vitamin D) 315-250 Mg-Unit Tab 1 Tab PO BID Review of Systems General / Constitutional: No: Fever, Chills, Weight Gain, Weight Loss Cardiovascular: No: Chest Pain or Discomfort Respiratory: No: Cough, Shortness of Breath Gastrointestinal: No: Nausea, Vomiting, Abdominal Pain Genitourinary: Positive: Dysuria, No: Urgency, Frequency, Hematuria Physical Exam Narrative GENERAL: A present WDWN male in no acute distress SKIN: Warm and dry. Slightly pale. HEAD: Atraumatic. Normocephalic. EYES: Pupils equal and round. No scleral icterus. No injection or drainage. ENT: No nasal bleeding or discharge. Mucous membranes pink and moist. NECK: Trachea midline. No JVD. CARDIOVASCULAR: Regular rate and rhythm. RESPIRATORY: No accessory muscle use. Clear to auscultation. Breath sounds equal bilaterally. GASTROINTESTINAL: Abdomen soft, non-tender, nondistended. Hepatic and splenic margins not palpable. MUSCULOSKELETAL: Extremities without clubbing, cyanosis, or edema. No obvious deformities. No tenderness upon palpation. NEUROLOGICAL: Awake and alert. No obvious cranial nerve deficits. Motor grossly within normal limits. Five out of 5 muscle strength in the arms and legs. Normal speech. PSYCHIATRIC: Appropriate mood and affect; insight and judgment normal. Data Data Last Documented VS Vital Signs Date Time Temp Pulse Resp B/P (MAP) Pulse Ox O2 Delivery O2 Flow Rate FiO2 09/26/17 07:33 97 17 130/91 (104) 100 Room Air 09/26/17 07:21 97.8 Orders Orders Complete Blood Count With Diff (09/26/17 07:48) Basic Metabolic Panel (Bmp) (09/26/17 07:48) Urinalysis - C+S If Indicated (09/26/17 07:48) Spine, Lumbar - Ltd (Ap & Lat) (09/26/17 07:48) Iv Access Insert/Monitor (09/26/17 07:48) Ecg Monitoring (09/26/17 07:48) Ct Lumb Spine W/O Contrast (09/26/17 08:18) Urine Culture (09/26/17 08:20) Ct Abd/Pel W/O Iv Contrast (09/26/17 08:56) Ketorolac Inj (Toradol Inj) (09/26/17 10:30) Labs Laboratory Tests Test 09/26/17 08:05 09/26/17 08:20 White Blood Count 5.3 TH/MM3 Red Blood Count 3.47 MIL/MM3 Hemoglobin 11.5 GM/DL Hematocrit 33.0 % Mean Corpuscular Volume 95.1 FL Mean Corpuscular Hemoglobin 33.0 PG Mean Corpuscular Hemoglobin Concent 34.7 % Red Cell Distribution Width 13.5 % Platelet Count 208 TH/MM3 Mean Platelet Volume 8.5 FL Neutrophils (%) (Auto) 51.8 % Lymphocytes (%) (Auto) 32.2 % Monocytes (%) (Auto) 13.0 % Eosinophils (%) (Auto) 2.3 % Basophils (%) (Auto) 0.7 % Neutrophils # (Auto) 2.7 TH/MM3 Lymphocytes # (Auto) 1.7 TH/MM3 Monocytes # (Auto) 0.7 TH/MM3 Eosinophils # (Auto) 0.1 TH/MM3 Basophils # (Auto) 0.0 TH/MM3 CBC Comment DIFF FINAL Differential Comment Blood Urea Nitrogen 25 MG/DL Creatinine 1.33 MG/DL Random Glucose 83 MG/DL Calcium Level 8.3 MG/DL Sodium Level 132 MEQ/L Potassium Level 4.9 MEQ/L Chloride Level 102 MEQ/L Carbon Dioxide Level 24.5 MEQ/L Anion Gap 6 MEQ/L Estimat Glomerular Filtration Rate 51 ML/MIN Urine Color LIGHT-YELLOW Urine Turbidity HAZY Urine pH 6.0 Urine Specific [place] 1.011 Urine Protein 100 mg/dL Urine Glucose (UA) NEG mg/dL Urine Ketones NEG mg/dL Urine Occult Blood SMALL Urine Nitrite POS Urine Bilirubin NEG Urine Urobilinogen LESS THAN 2.0 MG/DL Urine Leukocyte Esterase LARGE Urine RBC 13 /hpf Urine WBC /hpf Urine WBC Clumps FEW Urine Amorphous Sediment FEW Urine Bacteria FEW /hpf Microscopic Urinalysis Comment CULTURE INDICATED MDM Medical Decision Making Medical Screen Exam Complete: Yes Emergency Medical Condition: Yes Differential Diagnosis Muscle spasm, UTI, pyelonephritis, nephrolithiasis, cancer, fracture, Narrative Course 86-year-old male with a history of previous back injury/pain, presents today with complaints of exacerbation of low back pain. The patient has degenerative changes on his lumbar spine. He also has spinal stenosis. The patient has no focal neurologic deficits. His urinalysis shows leukocyte esterase and culture was indicated. He will be discharged and given a prescription for Arthrotec and Flexeril. He is instructed to take Arthrotec for 5 days. He's been given enough to have as needed in the future. Also be given up her prescription and for Flexeril told #5 days with a refill. Patient also be given Macrobid for his probable early UTI. He is instructed to return of he develops any worsening pain, numbness or tingling of his extremities, loss of sensation or weakness of his lower extremities. He is instructed to follow up with his primary care physician. Diagnosis Primary Impression: Lumbago Additional Impressions: Spinal stenosis Cystitis Additional Instructions: Take Arthrotec twice daily 5 days. Flexeril 3 times daily 5 days. Return if increased pain, numbness or weakness of the lower extremities, loss of bowel or bladder function, or any other reason the concerns. Avoid heavy lifting. Follow up through primary care physician. Med/Other Pt SpecificInfo: Prescription(s) given Scripts Methylprednisolone Dosepak (Medrol Dosepak) 4 Mg Dspk 4 MG PO DIRECTED, #1 DSPK 0 Refills Per Pharmacist direction Prov: Randolph Alvarado MD 09/26/17 Diclofenac-Misoprostol (Arthrotec 50) 50-0.2 Mg Tab 1 TAB PO BID for Pain Management, #30 TAB 0 Refills Prov: Randolph Alvarado MD 09/26/17 Nitrofurantoin Monohydrate Macrocrystals (Macrobid) 100 Mg Cap 100 MG PO BID for Infection for 7 Days, #14 CAP 0 Refills Prov: Randolph Alvarado MD 09/26/17 Cyclobenzaprine (Flexeril) 10 Mg Tab 10 MG PO TID for Muscle Spasm, #15 TAB 1 Refill Prov: Randolph Alvarado MD 09/26/17 Disposition: 01 DISCHARGE HOME Condition: Stable Randolph Alvarado MD Sep 26, 2017 08:03
--- NOTE | 2017-09-26 08:09 | RADRPT ---
EXAM DATE/TIME: 09/26/2017 07:59 [facility] COMPARISON: CT LUMBAR SPINE W/O CONTRAST, December 22, 2016, 2:49. INDICATIONS : Low back pain x4 days no known injury. MEDICAL HISTORY : Hypertension. Myocardial infarction. SURGICAL HISTORY : Pacemaker. Abdominal stenting ENCOUNTER: Initial ACUITY: 4 - 6 days PAIN SCORE: 0/10 LOCATION: Lumbar spine FINDINGS: Two view examination was performed. There are five non-rib bearing vertebral bodies. The vertebral bodies are in normal alignment without evidence of subluxation or scoliosis. Multilevel degenerative changes. Anterior endplate osteophytes at every level. Slight osteopenia. Slight depression of the yu perior plate of L5. The pedicles are intact. CONCLUSION: 1. Slight depression superior endplate L5 could be fracture of indeterminate age. 2. Multilevel degenerative changes. 3. Osteopenia. Bruce Mcclain MD on September 26, 2017 at 8:06 Board Certified Radiologist. This report was verified electronically.
[2017-09-26 08:17] LABS: AUTOMATED NEUTROPHIL # 2.7 TH/MM3 (1.8-7.7); BASOPHIL % 0.7 % (0.0-2.0); EOSINOPHIL # 0.1 TH/MM3 (0-0.4); EOSINOPHIL % 2.3 % (0.0-4.0); HEMOGLOBIN 11.5 GM/DL (13.0-17.0); LYMPH % 32.2 % (9.0-44.0); LYMPHOCYTE # 1.7 TH/MM3 (1.0-4.8); MEAN CELL VOLUME 95.1 FL (80.0-100.0); MEAN CORPUSCULAR HGB CONC 34.7 % (32.0-36.0); MEAN PLATELET VOLUME 8.5 FL (7.0-11.0); MONOCYTE # 0.7 TH/MM3 (0-0.9); NEUT % 51.8 % (16.0-70.0); PLATELET COUNT 208 TH/MM3 (150-450); RED BLOOD COUNT 3.47 MIL/MM3 (4.50-5.90); RED CELL DISTRIBUTION WIDTH 13.5 % (11.6-17.2); WHITE BLOOD COUNT 5.3 TH/MM3 (4.0-11.0)
[2017-09-26 08:36] LABS: AMORPHOUS SEDIMENT, URINE FEW; BACTERIA, URINE FEW /hpf; BILIRUBIN, URINE NEG (NEG); BLOOD, URINE SMALL (NEG); GLUCOSE,URINE NEG (NEG); KETONE, URINE NEG (NEG); NITRITE,URINE POS (NEG); URINE COLOR LIGHT-YELLOW (YELLW/STRAW); URINE LEUKOCYTE ESTERASE LARGE (NEG); WHITE BLOOD CELL CLUMPS FEW
[2017-09-26 08:45] LABS: BICARBONATE 24.5 MEQ/L (21.0-32.0); CALCIUM 8.3 MG/DL (8.5-10.1); CREATININE 1.33 MG/DL (0.60-1.30)
--- NOTE | 2017-09-26 09:37 | RADRPT ---
EXAM DATE/TIME: 09/26/2017 08:55 [facility] COMPARISON: CTA THORACIC ABDOMINAL AORTA W 3D RECON, December 22, 2016, 2:49. INDICATIONS : Low back pain for 4 days ORAL CONTRAST: No oral contrast ingested. RADIATION DOSE: 5.03 CTDIvol (mGy) MEDICAL HISTORY : Cardiovascular disease. Hypertension. SURGICAL HISTORY : Abdominal aortic aneurysm repair. ENCOUNTER: Initial ACUITY: 4 - 6 days PAIN SCALE: 6/10 LOCATION: low back TECHNIQUE: Volumetric scanning of the abdomen and pelvis was performed. Using automated exposure control and ad justment of the mA and/or kV according to patient size, radiation dose was kept as low as reasonably achievable to obtain optimal diagnostic quality images. DICOM format image data is available electro nically for review and comparison. FINDINGS: LOWER LUNGS: The visualized lower lungs are clear. LIVER: Homogeneous density without lesion. There is no dilation of the biliary tree. No calcified gallston es. SPLEEN: Normal size without lesion. PANCREAS: Within normal limits. KIDNEYS: Stable in appearance. Central calcifications are likely vascular in etiology. No hydronephrosis. Rede monstration of small bilateral cystic renal lesions including hyperdense cyst in the inferior pole of the left kidney. ADRENAL GLANDS: Stable adreniform enlargement of the adrenal glands. VASCULAR: Redemonstration of infrarenal aortic endoluminal stent graft repair. Stent appears intact. Aneurysm s ac remains collapsed around the stent graft and is stable in size. BOWEL/MESENTERY: The stomach, small bowel, and colon demonstrate no acute abnormality. Stable small hiatal hernia. Th ere is no free intraperitoneal air or fluid. ABDOMINAL WALL: Within normal limits. RETROPERITONEUM: There is no lymphadenopathy. BLADDER: No wall thickening or mass. REPRODUCTIVE: Stable nonspecific prominence of the prostate gland. INGUINAL: There is no lymphadenopathy or hernia. MUSCULOSKELETAL: Degenerative changes of the lower lumbar spine most prominently at L3-5 with diffuse disc bulge, liga mentum flavum hypertrophy and facet arthropathy resulting in apparent severe spinal canal stenosis. CONCLUSION: 1. One no acute on amounting the abdomen or pelvis. 2. 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 3. Stable infrarenal abdominal aortic endoluminal stent graft repair. 4. Stable ancillary findings, see above. Willis Betancourt MD on September 26, 2017 at 9:25 Board Certified Radiologist. This report was verified electronically.
[2017-09-26] MEDS ORDERED: MACR100C2 PO (10:14)
[2017-09-26] MEDS ORDERED: CYCL10TA PO (10:14)
[2017-09-26] MEDS ORDERED: ARTHTAB2 PO (10:14)
[2017-09-26] MEDS ORDERED: MEDR4PAK PO (10:19)
--- NOTE | 2017-09-26 10:21 | RADRPT ---
EXAM DATE/TIME: 09/26/2017 08:57 [facility] COMPARISON: CT LUMBAR SPINE W/O CONTRAST, December 22, 2016, 2:49. INDICATIONS : Low back pain for 4 days RADIATION DOSE: CTDIvol (mGy) ; Reconstructed from previous dataset, no dose MEDICAL HISTORY : Cardiovascular disease. Hypertension. SURGICAL HISTORY : Abdominal aortic aneurysm repair. ENCOUNTER: Initial ACUITY: 4 - 6 days PAIN SCALE: 6/10 LOCATION: low back TECHNIQUE: Volumetric scanning of the lumbar spine was performed. Multiplanar reconstructions in the sagittal, coronal and oblique axial planes were performed. Using automated exposure control and adjustment of the mA and/or kV according to patient size, radiation dose was kept as low as reasonab ly achievable to obtain optimal diagnostic quality images. DICOM format image data is available mirella ctronically for review and comparison. FINDINGS: VERTEBRAE: Normal vertebral body height. ALIGNMENT: No evidence of subluxation. T12-L1: The thecal sac has a normal diameter. No evidence of disc bulge or protrusion. The neural for rashawn are patent bilaterally. L1-L2:. No evidence of disc bulge or protrusion. The neural foramina are patent bilaterally. L2-L3:. A mild broad-based disc bulge. Mild ligamentum flavum hypertrophy of the facets. Central canal and neural foramina are patent. L3-L4: Generalized disc bulging is evident the bilateral femoral encroachment. There are minor degen erative changes in the facets. Spinal stenosis is moderate. L4-L5: Generalized disc bulging is evident the bilateral neural foramina encroachment and ligament hy pertrophy. Extensive facet disease is present. Spinal stenosis is moderate to severe. L5-S1: Mild disc bulging evident with minimal bilateral from encroachment. Moderate degenerative yajaira nges of facets. SI joints are normal. Aortic stent graft is evident. There is no hematoma CONCLUSION: That the degenerative changes similar to 2017. Spinal stenosis at L4-5 as severe. Donn Alejandre MD FACR on September 26, 2017 at 10:11 Board Certified Radiologist. This report was verified electronically.
[2017-09-26] MEDS ORDERED: KETOROLAC TROMETHAMINE 60 MG/2 ML (IM) VIAL IM ONE (10:30)
== END 2017-09-26 10:57 | disposition home or self-care (01) ==
LOC: NEPC 07:19
DX: M85.80 Other specified disorders of bone density and structure, unspecified site (principal); N30.90 Cystitis, unspecified without hematuria; A49.01 Methicillin susceptible Staphylococcus aureus infection, unspecified site; I10 Essential (primary) hypertension; I25.10 Atherosclerotic heart disease of native coronary artery without angina pectoris; N40.0 Benign prostatic hyperplasia without lower urinary tract symptoms; Z72.0 Tobacco use; Z79.82 Long term (current) use of aspirin; Z79.899 Other long term (current) drug therapy
CPT/HCPCS: 72100; 72131; 74176; 80048; 81001; 85025; 86403; 87086; 87186; 96372; 99285; J1885

== ENCOUNTER 2017-10-31 00:20 | Observation (INO) | payer MEDICARE ==
[2017-10-31] VITALS (8 sets, daily range): BP systolic 116–190; BP diastolic 59–84; PULSE 74–113; RESP 16–18; TEMP 97.8–98.2; O2SAT 97–99
[~2017-10-31] VITALS: Ht 167.6 cm; Wt 59.0 kg
[~2017-10-31 00:20] MED LIST changes: +ARTHTAB2 PO; +CYCL10TA PO; +LISI10TA3 PO; +MACR100C2 PO; +MEDR4PAK PO
[2017-10-31] MEDS ORDERED: METO50TA PO (02:00)
--- NOTE | 2017-10-31 02:42 | PD ---
HPI Chief Complaint: Back/ Neck Pain or Injury Time Seen by Provider: 01:59 Travel History International Travel<30 days: No Contact w/Intl Traveler<30days: No Traveled to known affect area: No History of Present Illness HPI The patient is an 86 year old male who presents to the [facility] emergency department with a history of left upper back pain that began this AM. He tried two Aleve for pain without relief. He had tingling in the left arm that began this afternoon and came and then went again. He denies having any new weakness in his arms or legs. He denies having any chest pain today, however he did have chest pain last night they came and went for approximately 1 hour. He denies having any SOB. The patient has a past medical history significant for an ND in 1988 s/p angioplasty, and a h/o pacemaker placement for heart block. He is followed by Dr. Santos for his cardiac care. He denies having any trauma or known injury to his neck or back. He denies having any fall. He is unsure whether he slept in an unusual position to cause the pain. 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 On review of systems, the patient denies having any known recent fevers, cough or congestion, abdominal pain, vomiting, diarrhea, urinary symptoms, or other neurologic symptoms. He denies having any night sweats. He denies having any loss of bowel or bladder control. FOR[facility]LY [facility] Past Medical History Narrative Medical The patient's past medical history is significant for BPH, lumbar spine stenosis , degenerative disc disease, hypertension, coronary artery disease status post myocardial infarction and angioplasty in the past, history of pacemaker placement. Cancer: No Cardiovascular Problems: Yes High Cholesterol: No Coronary Artery Disease: Yes Endocrine: No Genitourinary: Yes (BPH) Hypertension: Yes Immune Disorder: No Implanted Vascular Access Dvce: Yes Musculoskeletal: No Neurologic: No Psychiatric: No Reproductive: No Respiratory: No Past Surgical History Narrative Surgical The patient's past surgical history is significant for an abdominal aortic aneurysm repair, cardiac catheterization with angioplasty, pacemaker placement. Abdominal Aneurysm Repair: Yes ( 12/2004) Abdominal Surgery: Yes (2004 ENDOVASCULAR AAA) Body Medical Devices: AORTIC STENT Cardiac Surgery: Yes (ANGIOPLASTY 1988, PACEMAKER PLACED, AORTIC STENT) Other Surgery: Yes Social History Alcohol Use: No Tobacco Use: Yes (3-4 CIGS PER DAY) Substance Use: No Allergies-Medications (Allergen,Severity, Reaction): Coded Allergies: No Known Allergies (Verified Adverse Reaction, Unknown, 10/31/17) Reported Meds & Prescriptions Reported Meds & Active Scripts Active Lisinopril 10 Mg Tab 10 Mg PO DAILY 90 Days Finasteride 5 Mg Tab 5 Mg PO DAILY Do not crush. Flomax (Tamsulosin HCl) 0.4 Mg Cap 0.4 Mg PO HS Aspirin 81 (Aspirin) 81 Mg Tabdr 81 Mg PO DAILY Reported Metoprolol Tartrate 50 Mg Tab 50 Mg PO BID Review of Systems Except as stated in HPI: all other systems reviewed are Neg General / Constitutional: No: Fever Eyes: No: Visual changes HENT: Positive: Neck Pain, No: Headaches, Congestion, Neck Stiffness Cardiovascular: Positive: Chest Pain or Discomfort, No: Dyspnea on exertion Respiratory: No: Cough, Shortness of Breath Gastrointestinal: No: Abdominal Pain Genitourinary: No: Dysuria Musculoskeletal: Positive: Myalgias, Pain Skin: No Rash Neurologic: No: Weakness, Focal Abnormalities, Change in Mentation, Slurred Speech, Sensory Disturbance Psychiatric: No: Depression Endocrine: No: Polydipsia Hematologic/Lymphatic: No: Easy Bruising Physical Exam Narrative General: The patient is a well-developed well-nourished male in no acute distress.. Head and Neck exam: Head is normocephalic atraumatic. Eyes: EOMI, pupils are equal round and reactive to light. Nose: Midline septum with pink mucous membranes Mouth: Dentition unremarkable. Moist mucus membranes. Posterior oropharynx is not erythematous. No tonsillar hypertrophy. Uvula midline. Airway patent. Neck: No palpable lymphadenopathy. No nuchal rigidity. No thyromegaly. The patient reports having tenderness on palpation along the left cervical paraspinal musculature. No tenderness on palpation over his trapezius or upper left side of the back where he points to the pain being located. There is no erythema or ecchymosis. No step-off or crepitus. No spinous process tenderness to palpation. Cardiovascular: Sinus tachycardia in the low 100s without murmurs, gallops, or rubs. No pulse deficit to the extremities on simultaneous auscultation and palpation of his radial artery. Lungs: Clear to auscultation bilaterally. No wheezes, rhonchi, or rales. Abdomen: Soft, without tenderness to palpation in all 4 quadrants of the abdomen. No guarding, rebound, or rigidity. Normal bowel sounds are audible. No tenderness on palpation of McBurney's point. Negative Pinto sign. No palpable pulsatile mass. Extremities: No clubbing, cyanosis, or edema. 2+ pulses in all 4 extremities. No calf tenderness on palpation. Back: No spinous process tenderness to palpation. No step-off or crepitus. No erythema or ecchymosis. No costovertebral angle tenderness to palpation. Neurologic Exam: Cranial nerves 2-12 were intact on exam. Strength is 5/5 in all 4 extremities. No sensory deficits noted. Skin Exam: No rash noted. Intact skin that is warm and dry. Data Data Last Documented VS Vital Signs Date Time Temp Pulse Resp B/P (MAP) Pulse Ox O2 Delivery O2 Flow Rate FiO2 10/31/17 03:51 16 97 Room Air 10/31/17 03:00 111 10/31/17 00:22 98.2 Orders Orders Electrocardiogram (10/31/17 02:43) Complete Blood Count With Diff (10/31/17 02:43) Comprehensive Metabolic Panel (10/31/17 02:43) Creatine Kinase (Cpk) (10/31/17 02:43) Ckmb (Isoenzyme) Profile (10/31/17 02:43) Troponin I (10/31/17 02:43) B-Type Natriuretic Peptide (10/31/17 02:43) Prothrombin Time / Inr (Pt) (10/31/17 02:43) Act Partial Throm Time (Ptt) (10/31/17 02:43) Lipase (10/31/17 02:43) Magnesium (Mg) (10/31/17 02:43) Chest, Single Ap (10/31/17 02:43) Iv Access Insert/Monitor (10/31/17 02:43) Ecg Monitoring (10/31/17 02:43) Oximetry (10/31/17 02:43) Morphine Inj (Morphine Inj) (10/31/17 03:00) Ondansetron Inj (Zofran Inj) (10/31/17 03:00) Aspirin Chew (Aspirin Chew) (10/31/17 03:00) Nitroglycerin 2% Oint (Nitroglycerin 2% (10/31/17 03:00) Ct Cerv Spine W/O Contrast (10/31/17 ) Admit Order (Ed Use Only) (10/31/17 04:06) Labs Laboratory Tests Test 10/31/17 02:55 White Blood Count 10.6 TH/MM3 Red Blood Count 3.70 MIL/MM3 Hemoglobin 12.1 GM/DL Hematocrit 34.4 % Mean Corpuscular Volume 93.2 FL Mean Corpuscular Hemoglobin 32.7 PG Mean Corpuscular Hemoglobin Concent 35.1 % Red Cell Distribution Width 14.5 % Platelet Count 138 TH/MM3 Mean Platelet Volume 9.0 FL Neutrophils (%) (Auto) 72.1 % Lymphocytes (%) (Auto) 14.5 % Monocytes (%) (Auto) 12.4 % Eosinophils (%) (Auto) 0.4 % Basophils (%) (Auto) 0.6 % Neutrophils # (Auto) 7.6 TH/MM3 Lymphocytes # (Auto) 1.5 TH/MM3 Monocytes # (Auto) 1.3 TH/MM3 Eosinophils # (Auto) 0.0 TH/MM3 Basophils # (Auto) 0.1 TH/MM3 CBC Comment DIFF FINAL Differential Comment Prothrombin Time 10.0 SEC Prothromb Time International Ratio 1.0 RATIO Activated Partial Thromboplast Time 27.1 SEC Blood Urea Nitrogen 34 MG/DL Creatinine 1.43 MG/DL Random Glucose 115 MG/DL Total Protein 7.4 GM/DL Albumin 3.2 GM/DL Calcium Level 8.2 MG/DL Magnesium Level 1.9 MG/DL Alkaline Phosphatase 87 U/L Aspartate Amino Transf (AST/SGOT) 19 U/L Alanine Aminotransferase (ALT/SGPT) 13 U/L Total Bilirubin 0.5 MG/DL Sodium Level 129 MEQ/L Potassium Level 4.8 MEQ/L Chloride Level 95 MEQ/L Carbon Dioxide Level 24.9 MEQ/L Anion Gap 9 MEQ/L Estimat Glomerular Filtration Rate 47 ML/MIN Total Creatine Kinase 90 U/L Troponin I 0.02 NG/ML B-Type Natriuretic Peptide 554 PG/ML Lipase 175 U/L MDM Medical Decision Making Medical Screen Exam Complete: Yes Emergency Medical Condition: Yes Medical Record Reviewed: Yes Interpretation(s) Last Impressions Chest X-Ray 10/31/17 2673 Signed Impressions: Service Date/Time: Tuesday, October 31, 2017 02:52 - CONCLUSION: No acute disease. Doni Bearden MD Cervical Spine CT 10/31/17 0000 Signed Impressions: Service Date/Time: Tuesday, October 31, 2017 03:05 - CONCLUSION: Degenerative changes are noted as above. Doni Bearden MD Differential Diagnosis Cervical radiculopathy, versus acute coronary syndrome, versus TIA, versus peripheral neuropathy, versus musculoskeletal strain Narrative Course During the course of the patient's emergency department visit, the patient's history, examination, and differential diagnosis were reviewed with the patient. The patient was placed on a ekg monitor with oximetry and frequent blood pressure monitoring. The patient had IV access obtained and blood work sent for analysis. The patient had an EKG done on arrival that shows an electronic ventricular paced rhythm, heart rate of 102, no other acute findings. The patient was initially provided aspirin 324 mg p.o. 1, nitroglycerin 1 inch of the chest wall, morphine 4 mg IV for pain, Zofran 4 mg IV for nausea. The patient's laboratory studies were reviewed and remarkable for white count of 10.6, hemoglobin 12.1, platelets 138 with 72.1 neutrophils, monocytes 12.4, CMP is remarkable for a sodium of 129, chloride 95, BUN 34, creatinine 1.43, glucose 115, calcium 8.2, initial set of cardiac enzymes are negative, BNP is 554, lipase 175, PT PTT within normal limits Radiology studies were reviewed and remarkable for chest x-ray that shows no acute disease. CT scan of the cervical spine shows extensive degenerative changes with grade 1 anterolisthesis of C4 on C5 and C6 on C7, moderate to severe disc space narrowing at C5-C6 and C6-C7 with anterior osteophytosis greatest at C5. Odontoid process is intact, multilevel facet hypertrophic changes are seen. There is severe bilateral foraminal stenosis at C4-C5 secondary to facet and uncovertebral hypertrophy, moderate foraminal stenosis at C5-C6 secondary to facet and uncovertebral hypertrophy. Given the patient's chest pain last night, and tingling in the left arm today that resolved on its own, with a history of coronary artery disease the patient will be admitted to the chest pain center for rule out serial cardiac enzyme protocol. The patient was agreeable with this plan. The patient's results were discussed with the patient, including the plan of care. I explained that further testing and/ or monitoring is indicated based on the patient's history, examination, and/ or laboratory findings. Therefore, I recommended admission for additional evaluation. The patient expressed understanding and was agreeable with this plan. The patient was admitted to the hospital in stable condition and sent to a bed under the care of the chest pain center. Diagnosis Primary Impression: Chest pain, rule out acute myocardial infarction Additional Impressions: Neck pain without injury Degenerative disc disease, cervical Admitting Information Admitting Physician Requests: Tiffany Echavarria MD Oct 31, 2017 02:42
[2017-10-31] MEDS ORDERED: ASPIRIN 81 MG CHEW TAB CHEW ONE (03:00)
[2017-10-31] MEDS ORDERED: NITROGLYCERIN 2% OINT 1 GM PACKET TOPICAL ONE (03:00)
[2017-10-31] MEDS ORDERED: ONDANSETRON HCL 4 MG/2 ML VIAL IV PUSH ONE (03:00)
[2017-10-31] MEDS ORDERED: MORPHINE SULFATE 4 MG/ML INJ IV PUSH ONE (03:00)
[2017-10-31 03:10] LABS: AUTOMATED NEUTROPHIL # 7.6 TH/MM3 (1.8-7.7); BASOPHIL # 0.1 TH/MM3 (0-0.2); BASOPHIL % 0.6 % (0.0-2.0); EOSINOPHIL % 0.4 % (0.0-4.0); HEMATOCRIT 34.4 % (39.0-51.0); HEMOGLOBIN 12.1 GM/DL (13.0-17.0); LYMPH % 14.5 % (9.0-44.0); LYMPHOCYTE # 1.5 TH/MM3 (1.0-4.8); MEAN CELL VOLUME 93.2 FL (80.0-100.0); MEAN CORPUSCULAR HEMOGLOBIN 32.7 PG (27.0-34.0); MEAN CORPUSCULAR HGB CONC 35.1 % (32.0-36.0); MONO % 12.4 % (0.0-8.0); MONOCYTE # 1.3 TH/MM3 (0-0.9); NEUT % 72.1 % (16.0-70.0); PLATELET COUNT 138 TH/MM3 (150-450); RED CELL DISTRIBUTION WIDTH 14.5 % (11.6-17.2); WHITE BLOOD COUNT 10.6 TH/MM3 (4.0-11.0)
--- NOTE | 2017-10-31 03:11 | RADRPT ---
EXAM DATE/TIME: 10/31/2017 02:52 [facility] COMPARISON: CHEST SINGLE AP, March 01, 2017, 8:15. INDICATIONS : Left neck pain radiating to left shoulder and back. MEDICAL HISTORY : Cardiovascular disease. Hypertension SURGICAL HISTORY : Abdominal aortic aneurysm repair. Pacemaker. ENCOUNTER: Initial ACUITY: 1 day PAIN SCORE: 0/10 LOCATION: Bilateral chest FINDINGS: Hyperinflation. Cardiomegaly. Aortic calcification. Pacer device and a left subclavian transvenous ap proach and appearing the lungs are clear. CONCLUSION: No acute disease. Doni Bearden MD on October 31, 2017 at 3:08 Board Certified Radiologist. This report was verified electronically.
--- NOTE | 2017-10-31 03:16 | RADRPT ---
EXAM DATE/TIME: 10/31/2017 03:05 [facility] COMPARISON: No previous studies available for comparison. INDICATIONS : Neck and left shoulder pain with no known injury. RADIATION DOSE: 1981 CTDIvol (mGy) MEDICAL HISTORY : Cardiovascular disease. Aneurysm, abdominal. Hypertension. SURGICAL HISTORY : Pacemaker. ENCOUNTER: Initial ACUITY: 1 day PAIN SCALE: 5/10 LOCATION: neck TECHNIQUE: Volumetric scanning of the cervical spine was performed. Multiplanar reconstructions in the sagittal, coronal and oblique axial planes were performed. Using automated exposure control and adjustment o f the mA and/or kV according to patient size, radiation dose was kept as low as reasonably achievable to obtain optimal diagnostic quality images. DICOM format image data is available electronically f or review and comparison. FINDINGS: Grade 1 anterolisthesis of C4 on C5 and C6 on C7. [id number] disc space narrowing at C5-6 and C6-7 with anterior osteophytosis greatest at C5. Odontoid process is intact. Cervicothoracic junctio n is approximated. Multilevel facet hypertrophic changes are seen. There is uncovertebral hypertrophy at C5-6. There are no fractures. There is severe bilateral foraminal stenosis at C4-5 secondary to f acet and uncovertebral hypertrophy. Moderate foraminal stenosis at C5-6 secondary to facet and uncove rtebral hypertrophy. Emphysematous changes are noted and biapical pleural-parenchymal scarring identi fied, right greater than left. CONCLUSION: Degenerative changes are noted as above. Doni Bearden MD on October 31, 2017 at 3:12 Board Certified Radiologist. This report was verified electronically.
[2017-10-31 03:43] LABS: ALBUMIN 3.2 GM/DL (3.4-5.0); AST (GOT) 19 U/L (15-37); BICARBONATE 24.9 MEQ/L (21.0-32.0); BLOOD UREA NITROGEN 34 MG/DL (7-18); CALCIUM 8.2 MG/DL (8.5-10.1); CHLORIDE 95 MEQ/L (98-107); CREATININE 1.43 MG/DL (0.60-1.30); GLOMERULAR FILTRATION RATE 47 ML/MIN (>89); GLUCOSE,RANDOM 115 MG/DL (74-106); MAGNESIUM 1.9 MG/DL (1.5-2.5); SODIUM (NA) 129 MEQ/L (136-145)
[2017-10-31 03:49] LABS: ALKALINE PHOSPHATASE 87 U/L (45-117); ALT (GPT) 13 U/L (12-78); TOTAL BILIRUBIN ADULT 0.5 MG/DL (0.2-1.0); TOTAL PROTEIN 7.4 GM/DL (6.4-8.2); TROPONIN I 0.02 NG/ML (0.02-0.05)
[2017-10-31] MEDS ORDERED: ACETAMINOPHEN/HYDROcodone 325 MG/7.5 MG TAB PO PRN (04:30)
[2017-10-31] MEDS ORDERED: ACETAMINOPHEN 500 MG CPLT PO PRN (04:30)
[2017-10-31] MEDS ORDERED: SODIUM CHLORIDE 0.9% FLUSH 10 ML FLUSH IV FLUSH PRN (04:30)
[2017-10-31 07:20] LABS: TROPONIN I 0.03 NG/ML (0.02-0.05)
[2017-10-31] MEDS ORDERED: SODIUM CHLORIDE 0.9% FLUSH 10 ML FLUSH IV FLUSH SCH (09:00)
[2017-10-31] MEDS ORDERED: LISINOPRIL 10 MG TAB PO SCH (09:15)
[2017-10-31] MEDS ORDERED: METOPROLOL TARTRATE 50 MG TAB PO SCH (09:15)
[2017-10-31] MEDS ORDERED: FINASTERIDE 5 MG TAB PO SCH (09:15)
--- NOTE | 2017-10-31 10:08 | HHI.HP ---
[facility] Primary Care Physician Neftaly Higuera MD Chief Complaint Chest pain History of Present Illness This is a 86-year-old male that presents to ED with a complaint of developing a left upper chest/shoulder discomfort that radiated into his upper back and into the left side of his neck. This began yesterday. Still there at this time. Worsened with movement of his arm and neck. Denies trauma. 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 Denies any other type discomfort in his chest. States he had an MA in 1988 and had angioplasty. Has had no heart catheterization since. Follows Dr. Rosalino Santos of cardiology and states he had a stress test last week. We were able to obtain records and he had a nonischemic Lexiscan October 27, 2017. Denies shortness of breath, nausea, or diaphoresis. Denies weakness in his extremities. Most compliance with his medications. Review of Systems General: Patient denies fevers, chills recent, and recent travel HEENT: Patient denies headache, sore throat, difficulty swallowing. Cardiovascular: Has the chest discomfort as mentioned above. Denies sensation of heart beating rapidly or irregularly. No syncope. Denies diaphoresis. Respiratory: Denies shortness of breath or inspirational chest discomfort. Denies coughing wheezing or hemoptysis. GI: Patient denies nausea, vomiting, diarrhea, abdominal pain, bloody stools. Musculoskeletal: Complains of left shoulder pain as well as neck pain. Patient denies joint edema. Denies calf pain or edema. Neurovascular: Patient denies numbness, tingling, weakness in extremities. Denies headache. Endocrine: Denies polyuria and polydipsia. Hematologic: Denies easy bruising. Skin: Denies rash or itching. Past Family Social History Allergies: Coded Allergies: No Known Allergies (Verified Adverse Reaction, Unknown, 10/31/17) Past Medical History Hypertension, chronic renal insufficiency, stated CAD with MA in 1988 with angioplasty, pacemaker secondary to third-degree AV block, history of abdominal aortic aneurysm repair with stent, tobacco abuse. Denies hyperlipidemia and diabetes. Past Surgical History Pacemaker placed February 2017. Stent for abdominal aortic aneurysm in 2004. Reported Medications Reported Meds & Active Scripts Active Lisinopril 10 Mg Tab 10 Mg PO DAILY 90 Days Finasteride 5 Mg Tab 5 Mg PO DAILY Do not crush. Flomax (Tamsulosin HCl) 0.4 Mg Cap 0.4 Mg PO HS Aspirin 81 (Aspirin) 81 Mg Tabdr 81 Mg PO DAILY Reported Metoprolol Tartrate 50 Mg Tab 50 Mg PO BID Active Ordered Medications Current Medications Medications (Trade) Dose Ordered Sig/Tom Route Start Time Stop Time Status Last Admin (NS Flush) 2 ml UNSCH PRN IV FLUSH 10/31/17 04:30 (NS Flush) 2 ml BID IV FLUSH 10/31/17 09:00 (Tylenol) 500 mg Q4H PRN PO 10/31/17 04:30 (Nazareth 7.5-325 Mg) 1 tab Q4H PRN PO 10/31/17 04:30 (Proscar) 5 mg DAILY PO 10/31/17 09:15 UNV (Prinivil) 10 mg DAILY PO 10/31/17 09:15 UNV (Lopressor) 50 mg BID PO 10/31/17 09:15 UNV (Flomax) 0.4 mg HS PO 10/31/17 21:00 UNV (Ecotrin Ec) 81 mg DAILY PO 11/01/17 09:00 UNV Family History There is family history of CAD. Social History Continues to smoke 3-4 cigarettes a day and has done so for probably 50 years or so. Denies alcohol or illicit drugs. Physical Exam Vital Signs Vital Signs Date Time Temp Pulse Resp B/P (MAP) Pulse Ox O2 Delivery O2 Flow Rate FiO2 10/31/17 08:00 97.8 74 18 128/62 (84) 99 10/31/17 06:48 82 10/31/17 05:17 10/31/17 04:27 97 21 10/31/17 04:13 113 18 130/60 (83) 97 Room Air 10/31/17 03:51 16 97 Room Air 10/31/17 03:00 111 18 116/59 (78) 97 Room Air 10/31/17 00:22 98.2 110 18 190/84 (119) 98 Room Air Physical Exam GENERAL: This is a well-nourished, well-developed patient, in no apparent distress. Patient speaks in clear complete sentences. Patient is pleasant. HEENT: Head is atraumatic and normocephalic. Neck is supple without lymphadenopathy and trachea is midline. No JVD or carotid bruits. CARDIOVASCULAR: Regular rate and rhythm. Heart sounds are distant and are without murmurs, gallops, or rubs. RESPIRATORY: Clear to auscultation. Breath sounds equal bilaterally. No wheezes , rales, or rhonchi. Chest wall is nontender. No use of accessory muscles. GASTROINTESTINAL: Abdomen is nontender, nondistended. Abdomen soft. No obvious pulsatile mass or bruit. No CVA tenderness. Strong femoral pulses bilaterally. Normal bowel sounds in all quadrants. MUSCULOSKELETAL: Patient is moving upper and lower extremities freely however there is discomfort with movement of his left arm as a reproduces discomfort in the shoulder and neck. Discomfort with flexion-extension of cervical spine. Strong photo stylist strength bilaterally.. No calf tenderness or edema, no Homans sign. Strong pulses in upper and lower extremities. NEUROLOGICAL: Patient is alert and oriented. Cranial nerves 2-12 are grossly intact. No focal deficits and speech is clear. Strong photo stylist strength bilaterally. SKIN: No rash and turgor is normal. Laboratory Laboratory Tests Test 10/31/17 02:55 10/31/17 05:55 White Blood Count 10.6 Red Blood Count 3.70 Hemoglobin 12.1 Hematocrit 34.4 Mean Corpuscular Volume 93.2 Mean Corpuscular Hemoglobin 32.7 Mean Corpuscular Hemoglobin Concent 35.1 Red Cell Distribution Width 14.5 Platelet Count 138 Mean Platelet Volume 9.0 Neutrophils (%) (Auto) 72.1 Lymphocytes (%) (Auto) 14.5 Monocytes (%) (Auto) 12.4 Eosinophils (%) (Auto) 0.4 Basophils (%) (Auto) 0.6 Neutrophils # (Auto) 7.6 Lymphocytes # (Auto) 1.5 Monocytes # (Auto) 1.3 Eosinophils # (Auto) 0.0 Basophils # (Auto) 0.1 CBC Comment DIFF FINAL Differential Comment Prothrombin Time 10.0 Prothromb Time International Ratio 1.0 Activated Partial Thromboplast Time 27.1 Blood Urea Nitrogen 34 Creatinine 1.43 Random Glucose 115 Total Protein 7.4 Albumin 3.2 Calcium Level 8.2 Magnesium Level 1.9 Alkaline Phosphatase 87 Aspartate Amino Transf (AST/SGOT) 19 Alanine Aminotransferase (ALT/SGPT) 13 Total Bilirubin 0.5 Sodium Level 129 Potassium Level 4.8 Chloride Level 95 Carbon Dioxide Level 24.9 Anion Gap 9 Estimat Glomerular Filtration Rate 47 Total Creatine Kinase 90 68 Troponin I 0.02 0.03 B-Type Natriuretic Peptide 554 Lipase 175 Result Diagram: 10/31/17 0255 10/31/17 0255 Imaging Last 48 hours Impressions Chest X-Ray 10/31/17 0243 Signed Impressions: Service Date/Time: Tuesday, October 31, 2017 02:52 - CONCLUSION: No acute disease. Doni Bearden MD Cervical Spine CT 10/31/17 0000 Signed Impressions: Service Date/Time: Tuesday, October 31, 2017 03:05 - CONCLUSION: Degenerative changes are noted as above. Doni Bearden MD Course EKGs have paced rhythm. Caprini VTE Risk Assessment Caprini VTE Risk Assessment: Mod/High Risk (score >= 2) Caprini Risk Assessment Model Point Value = 1 Point Value = 2 Point Value = 3 Point Value = 5 Age 41-60 Minor surgery BMI > 25 kg/m2 Swollen legs Varicose veins or History of unexplained or recurrent spontaneous Oral contraceptives or hormone replacement Sepsis (< 1 month) Serious lung disease, including pneumonia (< 1 month) Abnormal pulmonary function Acute myocardial infarction Congestive heart failure (< 1 month) History of inflammatory bowel disease Medical patient at bed rest Age 61-74 Arthroscopic surgery Major open surgery (> 45 min) Laparoscopic surgery (> 45 min) Malignancy Confined to bed (> 72 hours) Immobilizing plaster cast Central venous access Age >= 75 History of VTE Family history of VTE Factor V Leiden Prothrombin [id number] Lupus anticoagulant Anticardiolipin antibodies Elevated serum homocysteine Heparin-induced thrombocytopenia Other congenital or acquired thrombophilia Stroke (< 1 month) Elective arthroplasty Hip, pelvis, or leg fracture Acute spinal cord injury (< 1 month) Prophylaxis Regimen Total Risk Factor Score Risk Level Prophylaxis Regimen 0-1 Low Early ambulation 2 Moderate Order ONE of the following: *Sequential Compression Device (SCD) *Heparin 5000 units SQ BID 3-4 Higher Order ONE of the following medications: *Heparin 5000 units SQ TID *Enoxaparin/Lovenox 40 mg SQ daily (WT < 150 kg, CrCl > 30 mL/min) *Enoxaparin/Lovenox 30 mg SQ daily (WT < 150 kg, CrCl > 10-29 mL/min) *Enoxaparin/Lovenox 30 mg SQ BID (WT < 150 kg, CrCl > 30 mL/min) AND/OR *Sequential Compression Device (SCD) 5 or more Highest Order ONE of the following medications: *Heparin 5000 units SQ TID (Preferred with Epidurals) *Enoxaparin/Lovenox 40 mg SQ daily (WT < 150 kg, CrCl > 30 mL/min) *Enoxaparin/Lovenox 30 mg SQ daily (WT < 150 kg, CrCl > 10-29 mL/min) *Enoxaparin/Lovenox 30 mg SQ BID (WT < 150 kg, CrCl > 30 mL/min) AND *Sequential Compression Device (SCD) Assessment and Plan Assessment and Plan * Atypical chest pain: Patient's discomfort appears musculoskeletal in nature. CT C-spine read by radiologist as degenerative changes with moderate to severe disc space narrowing at C5 6 and C6 7. Grade 1 anterolisthesis of C4 on C5 and C6 on C7. Severe bilateral foraminal stenosis at C4 5 and moderate foraminal stenosis C5-C6. We were able to obtain records revealing a nonischemic Lexiscan from October 27, 2017. He was seen by Dr. Rosalino Santos of cardiology and the chest pain center and he will be discharged at this time with instructions to follow-up with PCP as well as pain management. Return to ED for interval issues. * Hypertension: Continue current medication. * Chronic renal insufficiency: Patient to follow-up with PCP. * Tobacco abuse: Patient has been counseled on importance of smoking cessation. Patient is stable at this time. He is agreeable to this plan. Moreno Brito Oct 31, 2017 10:08
--- NOTE | 2017-10-31 10:14 | HHI.DCPOC ---
Discharge Care Plan Diagnosis: (1) Chest pain, atypical (2) Hypertension (3) Chronic kidney disease (4) Tobacco abuse (5) Pacemaker (6) Cervical radiculopathy due to degenerative joint disease of spine Goals to Promote Your Health * To prevent worsening of your condition and complications * To maintain your health at the optimal level Directions to Meet Your Goals Take your medications as prescribed Follow your dietary instruction Follow activity as directed Keep your appointments as scheduled Take your immunizations and boosters as scheduled If your symptoms worsen call your PCP, if no PCP go to Urgent Care Center or Emergency Room Smoking is Dangerous to Your Health. Avoid second hand smoke Call the 24-hour hour crisis hotline for domestic abuse at Moreno Brito Oct 31, 2017 10:13
[2017-10-31] MEDS ORDERED: TAMSULOSIN HCL 0.4 MG CAP PO SCH (21:00)
[2017-11-01] MEDS ORDERED: ASPIRIN EC 81 MG TABEC PO SCH (09:00)
--- NOTE | 2017-11-01 18:12 | EKG ---
Date Performed: 10/31/2017 Time Performed: 08:41:31 PTAGE: 86 years EKG: Sinus rhythm WITH SINUS ARRHYTHMIA NORMAL ECG Since PREVIOUS TRACING , no significant change noted PREVIOUS TRACIN10/31/2017 06.24 DOCTOR: Liza Wu Interpretating Date/Time 11/01/2017 18:10:19
--- NOTE | 2017-11-01 18:12 | EKG ---
Date Performed: 10/31/2017 Time Performed: 06:24:35 PTAGE: 86 years EKG: Sinus rhythm POSSIBLE LEFT ATRIAL ENLARGEMENT BORDERLINE ECG Since PREVIOUS TRACING , no longer paced PREVIOUS TRACIN10/31/2017 03.18 DOCTOR: Liza Wu Interpretating Date/Time 11/01/2017 18:10:40
--- NOTE | 2017-11-01 18:14 | EKG ---
Date Performed: 10/31/2017 Time Performed: 03:18:36 PTAGE: 86 years EKG: ELECTRONIC VENTRICULAR PACEMAKER ABNORMAL RHYTHM ECG Since PREVIOUS TRACING , now paced PREVIOUS TRACIN03/02/2017 05.34 DOCTOR: Liza Wu Interpretating Date/Time 11/01/2017 18:11:51
== END 2017-10-31 10:45 | disposition home or self-care (01) ==
LOC: NEPE 00:20 → NEDA 04:08 → NEPGCP 05:16
PROVIDERS: ADMIT Internal Medicine Interventional Cardiology; ATTEND Internal Medicine Interventional Cardiology
DX: I13.0 Hypertensive heart and chronic kidney disease with heart failure and stage 1 through stage 4 chronic kidney disease, or unspecified chronic kidney disease (principal); N18.9 Chronic kidney disease, unspecified; F17.210 Nicotine dependence, cigarettes, uncomplicated; M50.10 Cervical disc disorder with radiculopathy, unspecified cervical region; R20.2 Paresthesia of skin; Z95.0 Presence of cardiac pacemaker; I25.2 Old myocardial infarction; M48.061 Spinal stenosis, lumbar region without neurogenic claudication; N40.0 Benign prostatic hyperplasia without lower urinary tract symptoms; Z98.61 Coronary angioplasty status; R00.0 Tachycardia, unspecified; M48.02 Spinal stenosis, cervical region; M43.12 Spondylolisthesis, cervical region; Z79.899 Other long term (current) drug therapy; I49.8 Other specified cardiac arrhythmias; R94.31 Abnormal electrocardiogram [ECG] [EKG]
CPT/HCPCS: 71045; 72125; 80053; 82550; 83690; 83735; 83880; 84484; 85025; 85610; 85730; 93005; 96374; 96375; 99285; G0378; J2270; J2405

== ENCOUNTER 2018-02-22 10:42 | Emergency (ER) | payer MEDICARE ==
[~2018-02-22] VITALS: Ht 170.2 cm; Wt 60.5 kg
[~2018-02-22 10:42] MED LIST changes: -ARTHTAB2 PO; -CITRTAB7 PO; -CYCL10TA PO; -MACR100C2 PO; -MEDR4PAK PO; +METO50TA PO; -VITA10002 PO
[2018-02-22 10:44] VITALS: BP 164/71; PULSE 71; RESP 16; TEMP 97.8; O2SAT 99
[2018-02-22] MEDS ORDERED: ACETAMINOPHEN 325 MG TAB PO ONE (11:15)
[2018-02-22] MEDS ORDERED: TETANUS/DIPHTHERIA TOXOID ADULT 0.5 ML VIAL IM ONE (11:15)
--- NOTE | 2018-02-22 11:32 | PD ---
HPI . Elbow injury Chief Complaint: Fall Time Seen by Provider: 11:03 Travel History International Travel<30 days: No Contact w/Intl Traveler<30days: No Traveled to known affect area: No History of Present Illness HPI Patient presents for evaluation of injury sustained in a fall. He fell 4 days ago while visiting family in [place]. He states that he presents to us about it today because he just got home last night. He is complaining with right shoulder, right elbow, right finger and right upper quadrant abdominal pain. He reports that all of his injuries are mild. The main reason that he is here is to have us treat a skin tear on the right elbow. He reports no difficulty moving any of his joints. He denies any difficulty breathing. He denies any GI symptoms such as anorexia, nausea, vomiting or diarrhea. He denies any urinary symptoms. He states that his has cleaned the wound on the elbow with a washcloth and water. She applied a dressing. He does not know the date of his last tetanus shot. 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 Flomax (Tamsulosin HCl) 0.4 Mg Cap 0.4 Mg PO HS Aspirin 81 (Aspirin) 81 Mg Tabdr 81 Mg PO DAILY Reported Metoprolol Tartrate 50 Mg Tab 50 Mg PO BID Review of Systems Except as stated in HPI: all other systems reviewed are Neg Physical Exam Narrative GENERAL: Healthy-appearing 87-year-old man who is in no distress. SKIN: warm/dry. He has a skin tear on the right elbow. It does not appear infected. There is no purulent drainage or redness around the wound. HEAD: Normocephalic. Atraumatic. EYES: Pupils equal and round. Extraocular movements are intact. ENT: Mucous membranes pink and moist. NECK: Supple. Full range of motion without pain.. CARDIOVASCULAR: Regular rate and rhythm. RESPIRATORY: No accessory muscle use. Breath sounds equal bilaterally. Respiratory rate is 16 with sats of 99% on room air. No crepitus on palpation of the right lower rib cage. GASTROINTESTINAL: Abdomen soft. Tenderness in the right upper abdomen/right lower chest. Bowel sounds present. Nondistended. MUSCULOSKELETAL: Normal muscle tone. He is able to move the right shoulder, right elbow and right fingers without difficulty. No deformities are noted. NEUROLOGICAL: Awake and alert. No obvious cranial nerve deficits. Motor grossly within normal limits. Normal speech. PSYCHIATRIC: Appropriate mood and affect; insight and judgment normal. Data Data Last Documented VS Vital Signs Date Time Temp Pulse Resp B/P (MAP) Pulse Ox O2 Delivery O2 Flow Rate FiO2 02/22/18 11:09 18 100 Room Air 02/22/18 10:44 97.8 71 164/71 (102) Orders Orders Tetanus/Diphtheria Tox Adult (Tetanus/Di (02/22/18 11:15) Acetaminophen (Tylenol) (02/22/18 11:15) Wound Care (02/22/18 11:11) [facility] Medical Decision Making Medical Screen Exam Complete: Yes Emergency Medical Condition: Yes Differential Diagnosis Differential diagnosis includes but is not limited to skin laceration, muscular laceration, tendon laceration, neurovascular laceration. Narrative Course This patient presents for the evaluation of injury sustained in. His main concern is a skin tear on the right elbow. He is complaining with some soreness in the right shoulder, right elbow, right fingers and right upper abdomen/lower chest area. All of these injuries are mild. His tetanus will be updated and he will be given local wound care. He will then be discharged with instructions in local wound care. Diagnosis Primary Impression: Skin tear Patient Instructions: Acute Wound Care (DC), General Instructions Additional Instructions: Wash the wound at least once a day with mild soap and water. Do not scrub. Wash the wound gently. This can be done in the shower. Then apply a dressing to wound. Do this until the wound has healed. Disposition: 01 DISCHARGE HOME Condition: Stable Yahaira Andersen MD Feb 22, 2018 11:32
[2018-02-22 11:51] VITALS: BP 180/65
== END 2018-02-22 11:57 | disposition home or self-care (01) ==
LOC: PHED 10:42
DX: S51.011A Laceration without foreign body of right elbow, initial encounter (principal); W19.XXXA Unspecified fall, initial encounter; I25.10 Atherosclerotic heart disease of native coronary artery without angina pectoris; I10 Essential (primary) hypertension; N40.0 Benign prostatic hyperplasia without lower urinary tract symptoms; F17.210 Nicotine dependence, cigarettes, uncomplicated; Z95.0 Presence of cardiac pacemaker; Z23 Encounter for immunization
CPT/HCPCS: 90471; 90714